=== PATIENT | female | born 1935 | race Caucasian/White ===

== ENCOUNTER → 2020-02-14 04:16 | Outpatient (REF) | payer MEDICARE, OTHER, SELFPAY ==
[2020-02-14 04:46] LABS: Microscopic, Urine URINE MICROSCOPIC (MICROSCOPIC)
[2020-02-14 04:49] LABS: Appearance,Urine CLEAR (Clear); Bilirubin,Urine Negative (Negative); Blood, Urine Negative (Negative); Color,Urine YELLOW (Yellow); Glucose,Urine (UA) Negative (Negative); Ketones,Urine Negative (Negative); Leukocyte Esterase,Urine Negative (Negative); Nitrate,Urine Negative (Negative); Protein,Urine Negative (Negative); Urobilinogen,Urine 0.2 EU/dl (0.2)
[2020-02-14 04:55] LABS: Bacteria,Urine 1+ /lpf
== END ==
LOC: LAB 04:16
PROVIDERS: Visit Provider Emergency Medicine
DX: R39.9 Unspecified symptoms and signs involving the genitourinary system (principal)
CPT/HCPCS: 81001; 87086

== ENCOUNTER → 2020-02-19 05:43 | Outpatient (CLI) | payer MEDICARE, OTHER, SELFPAY ==
[2020-02-19 06:05] LABS: Adenovirus F 40/41, stool Not Detected (NotDetected); Astrovirus Not Detected (NotDetected); Campylobacter Not Detected (NotDetected); Clostridium Difficile A/B, PCR Not Detected (NotDetected); Cryptosporidium Not Detected (NotDetected); Cyclospora Cayetanesis Not Detected (NotDetected); Entamoeba histolytica Not Detected (NotDetected); Enteroaggregative E coli Not Detected (NotDetected); Enteropathogenic E coli Not Detected (NotDetected); Enterotoxigenic E coli Not Detected (NotDetected); Giardia lamblia Not Detected (NotDetected); Norovirus Not Detected (NotDetected); Plesimonas Shigalloides, PCR Not Detected (NotDetected); Rotavirus A Not Detected (NotDetected); Salmonella, PCR Not Detected (NotDetected); Sapovirus Not Detected (NotDetected); Shiga-like toxin E coli Not Detected (NotDetected); Shigella Enterovasive E coli Not Detected (NotDetected); Vibrio Cholerae Not Detected (NotDetected); Vibrio, PCR Not Detected (NotDetected); Yersinia Entercolitica, PCR Not Detected (NotDetected)
== END ==
PROVIDERS: PCP Emergency Medicine; Visit Provider Emergency Medicine
DX: R19.7 Diarrhea, unspecified (principal)
CPT/HCPCS: 87506

== ENCOUNTER 2020-03-02 14:01 | Emergency (ER) | payer MEDICARE, OTHER, SELFPAY ==
[2020-03-02 14:02] VITALS: BP 109/67; PULSE 73; RESP 18; TEMP 36.3; O2SAT 97; BMI 26.4
--- NOTE | 2020-03-02 14:03 | HMH.EDGENADL ---
ED Disposition Clinical Impression: Nasal laceration Qualifiers: Encounter type: initial encounter Qualified Code(s): S01.21XA - Laceration without foreign body of nose, initial encounter Fall Qualifiers: Encounter type: initial encounter Qualified Code(s): W19.XXXA - Unspecified fall, initial encounter Forehead contusion Qualifiers: Encounter type: initial encounter Qualified Code(s): S00.83XA - Contusion of other part of head, initial encounter Disposition: Xfer SNF Condition on Discharge: Good Instructions: How to Prevent Falls, DI for Laceration Repair Additional Instructions: Additional instructions for FACIAL LACERATION: Clean the wound daily with soap and water. You may shower. Apply a thin film of antibiotic ointment such as neosporin or triple antibiotic after showering. Avoid submerging the wound, no swimming. See your primary care physician in 5 days for suture removal. Return if any signs of infection including increasing pain, pus drainage, swelling, redness, red streaks, or fever. Additional instructions for HEAD INJURY: See your physician as soon as possible for further evaluation. Return immediately if severe headache, vomiting, problems with vision or speech, numbness or weakness of the extremities, or severe neck pain. Referrals: Dell Oconnell MD [Primary Care Provider] - - Critical Care Critical Care Time: No Attestation: On , the high probability of a clinically significant, sudden or life threatening deterioration of the following system(s) required my full and direct attention, intervention and personal management. The time I documented below is in addition to time spent performing reported procedures but includes the following listed in this critical care notation. Medical Decision Making - Cash Inquiry Pt receiving controlled substance: No Vital Signs: 03/02/20 14:02 03/02/20 15:32 Temperature 97.4 F L Temperature Source Oral Pulse Rate [Left Radial] 73 59 L Respiratory Rate 18 Blood Pressure [Right Arm] 109/67 L 102/63 L Blood Pressure Mean [Right Arm] 81 76 Blood Pressure Source [Right Arm] Automatic Cuff Blood Pressure Position [Right Arm] Sitting Sitting 02 Sat by Pulse Oximetry 97 95 Oxygen Delivery Method Room Air Room Air Orders (Tests/Meds): ED MEDICATIONS Discontinued Medications Generic Name Dose Route Start Last Admin Trade Name Freq PRN Reason Stop Dose Admin Lidocaine HCl 10 ml 03/02/20 14:12 Lidocaine 1% 10ml Mdv SQ 03/02/20 14:13 ONCE ONE Tetanus/Reduced Diphtheria/Acell Pertussis 0.5 ml 03/02/20 14:12 Adacel Tdap 0.5ml Syringe IM 03/02/20 14:13 .ONCE ONE - CT Data CT Scan: Head, C-Spine, Other (facial) Time Received: 15:[address] Reviewed: Yes: I have viewed the radiologist's interpretation Findings Narrative: PROCEDURE: CT FACIAL BONES WO CON CLINICAL HISTORY: FALL , LACERATION ON NOSE Posttraumatic pain, contusion with hematoma/laceration with swelling above the right eyebrow COMPARISON: No exams were available for comparison TECHNIQUE: Axial images obtained with sagittal and coronal reformats. All CT scans at the facility use one or more dose reduction, viz: automated exposure control, ma/kV adjustment per patient size (including targeted exams where dose is matched to indication, i.e. head), or iterative reconstruction technique. FINDINGS: Soft tissue swelling is present in the right frontal region of the scalp. No obvious fracture or dislocation. There is opacified left mastoid sinus. There is an oval area of subcortical lucency involving the right frontal bone medially. This measures approximately 11 x 3 mm and is well-circumscribed. No sinus air-fluid levels. There is some soft tissue gas along the inferior aspect of the nose at the region of the inferior nasal spine. Suspect underlying laceration. No obvious fracture. IMPRESSION: 1. No acute fractu
--- NOTE | 2020-03-02 14:11 | CT_ITS ---
PROCEDURE: CT HEAD/BRAIN WO CON CLINICAL INDICATION: fall Headache following injury, trauma, posttraumatic pain with contusion or hematoma/abrasion, dementia, altered mental status, swelling over right eyebrow COMPARISON: No exams were available for comparison TECHNIQUE: Axial images obtained. All CT scans at the facility use one or more dose reduction, viz: automated exposure control, ma/kV adjustment per patient size (including targeted exams where dose is matched to indication, i.e. head), or iterative reconstruction technique. FINDINGS: No midline shift, mass effect, intracranial hemorrhage, hydrocephalus, or extra-axial fluid collection is evident. There is generalized atrophy with hypoattenuation of the periventricular white matter consistent with microangiopathic changes. The calvarium has an unremarkable appearance. There is opacification of the left mastoid sinus no sinus air-fluid level. IMPRESSION: 1. No acute intracranial findings. 2. Left mastoid sinus disease Dictated by: Satnam Nelson MD 03/02/2020 15:00 Electronically signed by Satnam Nelson MD in [place] 03/02/2020 15:00
--- NOTE | 2020-03-02 14:12 | CT_ITS ---
PROCEDURE: CT CERVICAL SPINE WO CON CLINICAL INDICATION: fall Posttraumatic pain, neck pain following injury, blunt trauma with injury and pain the COMPARISON: No exams were available for comparison TECHNIQUE: Axial images obtained with sagittal and coronal reformats. All CT scans at the facility use one or more dose reduction, viz: automated exposure control, ma/kV adjustment per patient size (including targeted exams where dose is matched to indication, i.e. head), or iterative reconstruction technique. Axial spiral CT scanning performed of the cervical spine beginning at the base of the skull and continuing to the upper T-spine. 3-D multiplanar reconstruction with 3-D manipulation of volumetric data set in image rendering was completed by the radiologist and/or technologist with the supervision of the radiologist on independent workstation. FINDINGS: No acute fracture apparent. There is multilevel cervical spondylosis with osteoarthritic change of the atlantoaxial joint, degenerative disc disease C2-C3 with mild disc calcification, degenerative disc disease C3-C4 with 3 mm anterolisthesis of C3 and bilateral foraminal narrowing from endplate and uncovertebral and facet hypertrophy, degenerative disc disease C4-C5 with bilateral foraminal narrowing, degenerative disc disease C5-C6, degenerative disc disease C6-C7, degenerative disc disease C7-T1 with 4 mm anterolisthesis of C7. There are fibrotic changes in the lung apex on the right. 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 No acute fracture. 2. Multilevel cervical spondylosis as detailed above Dictated by: Satnam Nelson MD 03/02/2020 15:08 Electronically signed by Satnam Nelson MD in [place] 03/02/2020 15:08
--- NOTE | 2020-03-02 14:26 | PC.NURSE ---
Pt to rad.
--- NOTE | 2020-03-02 14:38 | PC.NURSE ---
daughter called and stated that she was POA and gave us permission to treat patient
--- NOTE | 2020-03-02 14:39 | CT_ITS ---
PROCEDURE: CT FACIAL BONES WO CON CLINICAL HISTORY: FALL , LACERATION ON NOSE Posttraumatic pain, contusion with hematoma/laceration with swelling above the right eyebrow COMPARISON: No exams were available for comparison TECHNIQUE: Axial images obtained with sagittal and coronal reformats. All CT scans at the facility use one or more dose reduction, viz: automated exposure control, ma/kV adjustment per patient size (including targeted exams where dose is matched to indication, i.e. head), or iterative reconstruction technique. FINDINGS: Soft tissue swelling is present in the right frontal region of the scalp. No obvious fracture or dislocation. There is opacified left mastoid sinus. There is an oval area of subcortical lucency involving the right frontal bone medially. This measures approximately 11 x 3 mm and is well-circumscribed. No sinus air-fluid levels. There is some soft tissue gas along the inferior aspect of the nose at the region of the inferior nasal spine. Suspect underlying laceration. No obvious fracture. IMPRESSION: 1. No acute fracture. 2. Right frontal scalp contusion. 3. Soft tissue gas along the inferior nasal spine suggestive of underlying laceration without obvious fracture. 4. Benign-appearing cystic lesion of the right frontal bone Dictated by: Satnam Nelson MD 03/02/2020 15:05 Electronically signed by Satnam Nelson MD in [place] 03/02/2020 15:05
--- NOTE | 2020-03-02 14:46 | PC.NURSE ---
Pt returned from rad.
[2020-03-02 15:32] VITALS: BP 102/63; PULSE 59; O2SAT 95
--- NOTE | 2020-03-02 15:32 | PC.NURSE ---
at bedside suturing
--- NOTE | 2020-03-02 15:41 | PC.NURSE ---
Notified Charis of transfer
--- NOTE | 2020-03-02 16:14 | PC.NURSE ---
[facility]
[2020-03-02 16:21] VITALS: BP 115/74; PULSE 78; RESP 16; TEMP 36.6; O2SAT 94
== END 2020-03-02 16:22 ==
PROVIDERS: Emergency Provider Emergency Medicine; PCP Emergency Medicine
DX: S01.21XA Laceration without foreign body of nose, initial encounter (principal); W01.10XA Fall on same level from slipping, tripping and stumbling with subsequent striking against unspecified object, initial encounter; Y92.129 Unspecified place in nursing home as the place of occurrence of the external cause; F03.90 Unspecified dementia, unspecified severity, without behavioral disturbance, psychotic disturbance, mood disturbance, and anxiety; Z23 Encounter for immunization
CPT/HCPCS: 12013; 70450; 70486; 72125; 90471; 90715; 99283

== ENCOUNTER 2020-03-03 09:07 | Inpatient (IN) | payer MEDICARE, OTHER, SELFPAY ==
[2020-03-03] VITALS (17 sets, daily range): BP systolic 63–137; BP diastolic 29–85; PULSE 50–85; RESP 16–20; TEMP 36.2–36.9; O2SAT 94–100; BMI 23.8
--- NOTE | 2020-03-03 09:25 | CT_ITS ---
PROCEDURE: CT HEAD/BRAIN WO CON CLINICAL INDICATION: ams Altered mental status, altered level of consciousness, confusion, disorientation, dementia COMPARISON: CT HEAD/BRAIN WO CON from 03/02/2020 TECHNIQUE: Axial images obtained. All CT scans at the facility use one or more dose reduction, viz: automated exposure control, ma/kV adjustment per patient size (including targeted exams where dose is matched to indication, i.e. head), or iterative reconstruction technique. FINDINGS: No midline shift, mass effect, intracranial hemorrhage, hydrocephalus, or extra-axial fluid collection is evident. There is generalized atrophy with hypoattenuation of the periventricular white matter consistent with microangiopathic changes. Nodularity is noted in the pituitary region measuring 10 mm. The calvarium has an unremarkable appearance. There is opacification of the left mastoid sinus. No sinus air-fluid level. IMPRESSION: 1. No acute intracranial findings. 2. Possible pituitary nodule. Nonemergent MRI of the pituitary may confirm if clinically desired. 3. Left mastoid sinus disease Dictated by: Satnam Nelson MD 03/03/2020 10:38 Electronically signed by Satnam Nelson MD in [facility] 03/03/2020 10:38
--- NOTE | 2020-03-03 09:26 | XR_ITS ---
PROCEDURE: XR CHEST PORTABLE CLINICAL HISTORY: ams, recent fall with injury and pain COMPARISON: No exams were available for comparison FINDINGS: There is cardiomegaly without failure. The lungs are clear without infiltrates, suspicious nodules, or pleural effusions. Degenerative changes of the shoulders IMPRESSION: No acute findings. Dictated by: Satnam Nelson MD 03/03/2020 10:45 Electronically signed by Satnam Nelson MD in [facility] 03/03/2020 10:45
[2020-03-03 09:31] LABS: Basophils % 0.6 % (0.1-2.0); Eosinophils # 0.1 K/mm3 (0.0-0.4); Eosinophils % 1.4 % (0.1-12.0); Hemoglobin 11.6 g/dL (12.2-16.2); Lymphocytes # 0.7 K/mm3 (0.7-4.5); Lymphocytes % 9.4 % (10-50); Mean Corpuscular HGB Conc 32.3 g/dL (31.8-35.4); Mean Corpuscular Hemoglobin 32.3 pg (27.0-31.2); Mean Corpuscular Volume 100.2 fl (81-99); Mean Platelet Volume 9.3 fl (7.4-10.4); Monocytes # 0.5 K/mm3 (0.1-1.0); Monocytes % 6.6 % (1.7-9.3); Neutrophils # 5.7 K/mm3 (1.8-7.8); Platelet Count 226 K/mm3 (142-424); Red Cell Distribution Width 13.5 % (11.5-17.5)
[2020-03-03 09:35] LABS: Chloride 101 mmol/L (98-107); Potassium 5.5 mmoL/L (3.5-5.1); Sodium 135 mmol/L (136-145)
[2020-03-03 09:37] LABS: Alanine Aminotransferase 15 U/L (12-78); Aspartate Amino Transferase 20 U/L (14-36); Blood Urea Nitrogen 36 mg/dl (7-17); Creatinine Clearance Estimated 15 mL/min (50-200); Estimated Glomerular Filt Rate 24 ml/min (>60); GFR (African American) 29 ML/MIN (>60)
[2020-03-03 09:38] LABS: Albumin Level 3.1 g/dl (3.5-5.0); Albumin/Globulin Ratio 1.1 (1.1-1.8); Alkaline Phosphatase 176 U/L (38-126); Anion Gap 16.5 mEq/L (5-15); Bilirubin,Total 0.3 mg/dl (0.2-1.3); Carbon Dioxide 23 mmol/L (22.0-30.0); Globulin 2.7 g/dL (1.3-3.2); Glucose 91 mg/dl (74-100); Total Protein,Serum 5.8 g/dl (6.3-8.2)
--- NOTE | 2020-03-03 09:41 | ECG_ITS ---
APPROVED REPORT Exam: Resting ECG HR:55 bpm ECG Measurements Heart Rate 55 AXES MI 144 P 99 QRSd 82 QRS 75 QT 446 T 73 QTc 426 <Conclusion> Sinus bradycardia Otherwise normal ECG Electronically signed by : Julio Armando, 03/03/2020 17:00:00
[2020-03-03 09:43] LABS: Appearance,Urine SL CLOUDY (Clear); Bilirubin,Urine Negative (Negative); Blood, Urine 1+ (Negative); Color,Urine YELLOW (Yellow); Glucose,Urine (UA) Negative (Negative); Ketones,Urine Negative (Negative); Leukocyte Esterase,Urine 1+ (Negative); Microscopic, Urine URINE MICROSCOPIC (MICROSCOPIC); Nitrate,Urine Negative (Negative); PH,Urine 7.5 (5.0-8.5); Protein,Urine TRACE (Negative); Specific Gravity, Urine 1.015 (1.005-1.030); Urobilinogen,Urine 0.2 EU/dl (0.2)
--- NOTE | 2020-03-03 09:47 | PC.NURSE ---
Pt going to rad
[2020-03-03 09:49] LABS: Amorphous Sediment,Urine 1+ /lpf; WBC,Urine 50-100 #/hpf (0-3)
--- NOTE | 2020-03-03 11:12 | PC.NURSE ---
JUDITH DASILVA speaking with Dr. Oconnell
--- NOTE | 2020-03-03 11:42 | CT_ITS ---
PROCEDURE: CT ABDOMEN PELVIS WO CON CLINICAL INDICATION: NAUSEA, VOMITING COMPARISON: No exams were available for comparison TECHNIQUE: Axial images obtained with sagittal and coronal reformats. All CT scans at the facility use one or more dose reduction, viz: automated exposure control, ma/kV adjustment per patient size (including targeted exams where dose is matched to indication, i.e. head), or iterative reconstruction technique. FINDINGS: LOWER THORAX: No acute finding ABDOMEN & PELVIS: The liver has an unremarkable appearance. Subtle increased density is present in the gallbladder posteriorly may be due to stones and/or sludge. Gallbladder ultrasound may confirm. The spleen and pancreas have an unremarkable appearance. There is mild prominence of the adrenal glands nonspecific. No renal or ureteral calculi. 1 cm exophytic isodense the projects laterally of the right kidney and may be due to small cyst. No intestinal obstruction or free air. There is a mild amount of retained colonic feces with colonic diverticulosis but no evidence of diverticulitis. Suture line is present in the right lower quadrant possibly from prior appendectomy. No evidence of appendicitis. Julian catheter is present. Air is present in the urinary bladder. There are degenerative changes in the lumbar spine and hips. IMPRESSION: Possible gallstones and/or sludge Colonic diverticulosis. No evidence of diverticulitis. Dictated by: Satnam Nelson MD 03/03/2020 12:40 Electronically signed by Satnam Nelson MD in [facility] 03/03/2020 12:40
--- NOTE | 2020-03-03 11:43 | CT_ITS ---
PROCEDURE: CT CHEST WO CON CLINICAL INDICATION: HYPOTENSION Hypotension, COMPARISON: XR CHEST PORTABLE from 03/03/2020 CT ABDOMEN PELVIS WO CON from 03/03/2020 TECHNIQUE: Axial images obtained with sagittal and coronal reformats. All CT scans at the facility use one or more dose reduction, viz: automated exposure control, ma/kV adjustment per patient size (including targeted exams where dose is matched to indication, i.e. head), or iterative reconstruction technique. FINDINGS: Areas noted scattered in the venous structures of the upper chest and neck possibly due to recent venous access. There are coronary artery calcifications. There is mild cardiomegaly. There are some mild atelectatic changes in the lung bases. No lobar consolidation or collapse. No effusions or infiltrates. There is moderate-sized right shoulder joint effusion causing some mild displacement anteriorly of the right humeral head. There is scalloping of the right glenoid and a chromium consistent with chronic effusion. Subarticular cystic changes are present in the left humeral head with medium size left shoulder joint effusion. Kyphoscoliosis noted in the thoracic spine with no acute bony anomalies evident. IMPRESSION: 1. No acute cardiac or pulmonary findings. 2. Coronary artery calcification. 3. Scattered foci of air noted in the venous structures of the upper chest and neck possibly due to recent venous access. Please correlate clinically 4. Bilateral shoulder joint effusions right larger than left with scalloping of the right glenoid and a chromium Dictated by: Satnam Nelson MD 03/03/2020 12:35 Electronically signed by Satnam Nelson MD in [place] 03/03/2020 12:35
--- NOTE | 2020-03-03 11:52 | PC.NURSE ---
Pt to rad.
--- NOTE | 2020-03-03 12:12 | PC.NURSE ---
Pt returned from [facility] Dr Quezada speaking with Dr. Oconnell at this time.
--- NOTE | 2020-03-03 12:50 | HMH.EDGENADL ---
ED Disposition Clinical Impression: Acute renal failure, Dehydration, Nausea and vomiting, UTI (urinary tract infection), Status post fall Disposition: Admitted as Observation Condition on Discharge: Good Instructions: DI for Altered Mental Status Additional Instructions: Spoke to Dr. Oconnell about this patient we did keep the patient down here in the ED for couple hours to monitor and watch blood pressure. Time of transfer patient was stable blood pressure was normal. Referrals: Provider,Referral, MD [Primary Care Provider] - - Critical Care Critical Care Time: No Attestation: On 03/03/20, the high probability of a clinically significant, sudden or life threatening deterioration of the following system(s) required my full and direct attention, intervention and personal management. The time I documented below is in addition to time spent performing reported procedures but includes the following listed in this critical care notation. Medical Decision Making - Medical Records Medical records reviewed: Yes: I reviewed the patient's medical records. - Cash Inquiry Pt receiving controlled substance: No Vital Signs: 03/03/20 09:18 03/03/20 09:32 03/03/20 10:19 Temperature 97.2 F L Temperature Source Rectal Pulse Rate [Left Radial] 57 L 57 L 50 L Respiratory Rate 16 16 Blood Pressure [Right Arm] 63/29 L 87/50 L 95/49 L Blood Pressure Mean [Right Arm] 40 62 64 Blood Pressure Source [Right Arm] Automatic Cuff Blood Pressure Position [Right Arm] Supine Sitting Supine 02 Sat by Pulse Oximetry 98 100 Oxygen Delivery Method Room Air Room Air 03/03/20 10:42 03/03/20 11:19 03/03/20 11:40 Temperature Temperature Source Pulse Rate [Left Radial] 52 L 52 L 57 L Respiratory Rate Blood Pressure [Right Arm] 92/36 L 86/42 L 73/46 L Blood Pressure Mean [Right Arm] 54 56 55 Blood Pressure Source [Right Arm] Blood Pressure Position [Right Arm] Sitting Supine 02 Sat by Pulse Oximetry Oxygen Delivery Method 03/03/20 11:53 03/03/20 12:15 03/03/20 12:32 Temperature Temperature Source Pulse Rate [Left Radial] 85 72 67 Respiratory Rate 16 Blood Pressure [Right Arm] 121/85 95/63 L 93/56 L Blood Pressure Mean [Right Arm] 97 73 68 Blood Pressure Source [Right Arm] Automatic Cuff Blood Pressure Position [Right Arm] Sitting Sitting Sitting 02 Sat by Pulse Oximetry 98 Oxygen Delivery Method Room Air - Lab Data Lab results reviewed: Yes: I reviewed the patient's lab results. Lab Results 03/03/20 09:15: WBC 7.0, RBC 3.60 L, Hgb 11.6 L, Hct 36.0 L, MCV 100.2 H, MCH 32.3 H, MCHC 32.3, RDW 13.5, Plt Count 226, MPV 9.3, Neut % (Auto) 82.0 H, Lymph % (Auto) 9.4 L, Roberts % (Auto) 6.6, Eos % (Auto) 1.4, Baso % (Auto) 0.6, Neut # (Auto) 5.7, Lymph # (Auto) 0.7, Roberts # (Auto) 0.5, Eos # (Auto) 0.1, Baso # (Auto) 0.0 03/03/20 09:15: Sodium 135 L, Potassium 5.5 H, Chloride 101, Carbon Dioxide 23, Anion Gap 16.5 H, BUN 36 H, Creatinine 2.00 H, Estimated Creat Clear 15, Estimated GFR 24 L, Est GFR ( Amer) 29 L, Glucose 91, Calcium 8.0 L, Total Bilirubin 0.3, AST 20, ALT 15, Alkaline Phosphatase 176 H, Total Protein 5.8 L, Albumin 3.1 L, Globulin 2.7, Albumin/Globulin Ratio 1.1 03/03/20 09:15: Lactate 2.0 03/03/20 09:15: Urine Color Yellow, Urine Appearance Sl cloudy, Urine pH 7.5, Ur Specific Hulbert 1.015, Urine Protein Trace, Urine Glucose (UA) Negative, Urine Ketones Negative, Urine Blood 1+, Urine Nitrate Negative, Urine Bilirubin Negative, Urine Urobilinogen 0.2, Ur Leukocyte Esterase 1+ A, Urine RBC 5-10, Urine WBC 50-100, Ur Squamous Epith Cells 3-5, Ur Transition Epith Cell 3-5, Amorphous Sediment 1+, Urine Bacteria None Result diagrams: 03/03/20 09:15 03/03/20 09:15 Orders (Tests/Meds): ED MEDICATIONS Generic Name Dose Route Start Last Admin Trade Name Freq PRN Reason Stop Dose Admin Sodium Chloride 1,000 mls @ 999 mls/hr 03/03/20 09:45 03/03/20 09:15 Sod Chlor 0.9%
--- NOTE | 2020-03-03 13:30 | PC.NURSE ---
report called to floor
--- NOTE | 2020-03-03 13:53 | P.CONPHA_ITS ---
[facility] Pharmacy VTE Monitoring - Patient Demographics Admission date: 03/03/20 Report Date: 03/03/20 Time: 13:53 Allergies/Adverse Reactions: Patient Allergies aspirin Allergy (Unknown, Verified 03/03/20 13:48) Unknown allergy reaction ibuprofen Allergy (Unknown, Verified 03/03/20 13:48) Unknown allergy reaction Penicillins Allergy (Unknown, Verified 03/03/20 13:48) Unknown allergy reaction Height: 1.52 m Weight: 45.359 kg Patient Problems: Current Active Problems Acute renal failure (Acute) Dehydration (Acute) Nausea and vomiting (Acute) UTI (urinary tract infection) (Acute) Status post fall (Acute) - VTE Risk Labs: VTE Related Lab Results Hgb 11.6 g/dL (12.2-16.2) L 03/03/20 09:15 Hct 36.0 % (37.0-47.0) L 03/03/20 09:15 Plt Count 226 K/mm3 (142-424) 03/03/20 09:15 BUN 36 mg/dl (7-17) H 03/03/20 09:15 Creatinine 2.00 mg/dl (0.52-1.04) H 03/03/20 09:15 Estimated Creat Clear 15 mL/min (50-200) 03/03/20 09:15 - Prophylaxis VTE Prophylaxis Ordered?: Yes Types of VTE Prophylaxis: TEDS Knee High Location of Applied Device: Bilateral Lower Extremeties - VTE Diagnosis Confirmed Treatment or plan recommended: Continue Current Treatment
--- NOTE | 2020-03-03 17:36 | PC.NURSE ---
THIS RN ALONG WITH MELINDA LOPEZ PROVIDED PATIENT WITH CATHETER CARE AND BEDSIDE BATH. THIS RN NOTED THICK, BANGURA, WHITE, MUCUS DRAINAGE FROM VAGINAL AREA WITH A STRONG FOUL ODOR.
--- NOTE | 2020-03-03 18:15 | PC.NURSE ---
THIS RN ASSISTED MELINDA LOPEZ IN PROVIDING PATIENT WITH A SHOWER USING THE SHOWER CHAIR. PATIENT TOLERATED WELL. PATIENT'S FEET BECAME RED WHILE IN A SITTING POSITION. PATIENT WEAK WHEN STANDING TO GO FROM BED TO SHOWER CHAIR. NO OTHER CONCERNS AT THIS TIME.
--- NOTE | 2020-03-03 21:50 | PC.NURSE ---
AFTER PREPARING THE PM MEDICATIONS THIS EVENING FOR THE PT, THIS RN NOTICED THE KARDEX SAID PER KMA AT [facility] BAD REACTION TO ATIVAN . THIS RN HAD ALREADY CRUSHED THE THREE PM MEDICATIONS TOGETHER BUT HAD NOT YET ADMINISTERED TO PATIENT. AFTER CONSULTING WITH THE CHARGE NURSE, EMMA HO, THIS RN CALLED [facility] TO CLARIFY WHAT HER ALLEGED REACTION IS TO ATIVAN. THIS RN SPOKE WITH THE [place] SMITH FROM [facility] AND WAS TOLD THAT THE PATIENT HAD ONLY BEEN AT [facility] FOR ABOUT A MONTH AND CURRENTLY HAD ATIVAN ON HER JAN FOR PRN DOSING. PRIOR TO HER ARRIVAL AT [facility] [place] SMITH WAS TOLD THAT THE PT WAS TAKING ATIVAN BID AND TOLERATED IT WELL BUT AFTER THE DOSING CHANGED TO PRN THE PT STARTED HAVING INCREASED ANXIETY AND INCREASED AMS. REPORTS PT WAS TRYING TO CLIMB OOB AND VERY CONFUSED. THIS RN SPOKE WITH MD SAEED AT THIS TIME AFTER SPEAKING WITH NURSE AT [facility]. EXPLAINED TO MD WHAT THE NURSE TOLD ME ABOUT PT'S REACTION TO ATIVAN. MD GAVE NEW ORDERS TO HOLD ATIVAN THIS EVENING. HE WILL READDRESS IT IN THE AM WITH CARROLL DOMINGUEZ WHO ROUNDS ON THE PT AT [facility]. HELD ATIVAN DOSE THIS EVENING. PROPERLY DISPOSED OF THE ALREADY CRUSHED MEDICATIONS WITH ATIVAN IN THE MIX. USED ANOTHER RESPIRIDONE TABLET FROM [facility] IN PT'S ROOM AND PULLED A PRAVASTATIN TABLET FROM [employer]. WITNESSED WITH [place] CARTER. PT REMAINS STABLE, WITH MILD CONFUSION THIS EVENING. TOOK MEDS WITH NO COMPLAINTS. WILL CONTINUE TO MONITOR.
[2020-03-04] VITALS (8 sets, daily range): BP systolic 94–128; BP diastolic 54–62; PULSE 50–65; RESP 16–18; TEMP 35–36.4; O2SAT 98–99; BMI 23.6; BMI 23.8
--- NOTE | 2020-03-04 00:35 | PC.NURSE ---
PT BECAME VERY RESTLESS TRYING TO CLIMB OOB, TALKING TO THE WINDOW AND GETTING FRUSTRATED EASILY. BED ALARM CONTINUOUSLY SOUNDING. STAFF ENCOURAGED PT TO CLOSE HER EYES AND REST UNTIL MORNING, PT PERSISTED. WITH HER CONTINUOS CONFUSION THIS RN REQUESTED A ONE ON ONE STAFF TO ASSIST HER FOR PT SAFETY. TECH IN ROOM AT THIS TIME TO CONTINUOUSLY MONITOR PT.
--- NOTE | 2020-03-04 03:34 | PC.NURSE ---
A&O TO SELF ONLY. ABLE TO STATE HER NAME BUT NOT WHEN ASKED. PT REMAINED VERY CONFUSED T/O SHIFT AND TALKATIVE WHEN SLEEPING. STAFF REMAINED AT BEDSIDE, WITH ONE ON ONE WATCH. BED ALARM REMAINS ON AND FUNCTIONING. TOLERATED RA WELL WITH NO COMPLAINTS. NO SOA NOTED. BILATERAL LUNGS NOTED CLEAR T/O UPON AUSCULTATION. F/C SITE NOTED C/D/I. URINE NOTED CLEAR, BRIGHT YELLOW IN COLOR WITH NORMAL ODOR. TEDS ON BLE. VSS. REMAINS SAFE. CALL LIGHT WITHIN REACH. WILL CONTINUE TO MONITOR.
--- NOTE | 2020-03-04 04:20 | PC.NURSE ---
PLACED BEAR HUGGER GOWN ON PT FOR WARMING. THIS RN WAS UNABLE TO OBTAIN A ORAL OR AXILLARY TEMP. CHECKED RECTAL, TEMP NOTED AT 96.0. PT ASYMPTOMATIC AT THIS TIME. LYING BED, TALKING, SKIN COOL TO THE TOUCH. WILL CONTINUE TO MONITOR AND REASSESS TEMP. INCREASED ROOM TEMP ALSO AT THIS TIME.
--- NOTE | 2020-03-04 04:31 | PC.NURSE ---
APPLIED WARM BLANKETS TO PT AND INCREASED ROOM TEMP AT THIS TIME DUE TO RECTAL TEMP 96.0 F. UNABLE TO OBTAIN A ORAL OR AXILLARY TEMP AT THIS TIME. PT REMAINS ASYMPTOMATIC AT THIS TIME, RESTING IN BED, TALKING WITH STAFF. PT'S SKIN COOL TO TOUCH. WILL CONTINUE TO MONITOR AND REASSESS TEMP.
[2020-03-04 05:38] LABS: POC Glucose,Bedside 97 (70-110)
[2020-03-04 06:12] LABS: Eosinophils # 0.1 K/mm3 (0.0-0.4); Mean Platelet Volume 9.2 fl (7.4-10.4); Red Cell Distribution Width 13.6 % (11.5-17.5)
[2020-03-04 06:17] LABS: Chloride 112 mmol/L (98-107); Potassium 4.9 mmoL/L (3.5-5.1); Sodium 134 mmol/L (136-145)
[2020-03-04 06:20] LABS: Alanine Aminotransferase 9 U/L (12-78); Albumin Level 2.1 g/dl (3.5-5.0); Albumin/Globulin Ratio 0.9 (1.1-1.8); Alkaline Phosphatase 135 U/L (38-126); Anion Gap 6.9 mEq/L (5-15); Aspartate Amino Transferase 16 U/L (14-36); Basophils % 0.4 % (0.1-2.0); Bilirubin,Total 0.2 mg/dl (0.2-1.3); Blood Urea Nitrogen 25 mg/dl (7-17); Carbon Dioxide 20 mmol/L (22.0-30.0); Creatinine Clearance Estimated 21 mL/min (50-200); Eosinophils % 1.7 % (0.1-12.0); Estimated Glomerular Filt Rate 33 ml/min (>60); GFR (African American) 40 ML/MIN (>60); Globulin 2.3 g/dL (1.3-3.2); Hematocrit 30.5 % (37.0-47.0); Lymphocytes # 0.9 K/mm3 (0.7-4.5); Lymphocytes % 18.1 % (10-50); Mean Corpuscular HGB Conc 31.1 g/dL (31.8-35.4); Mean Corpuscular Hemoglobin 31.2 pg (27.0-31.2); Mean Corpuscular Volume 100.5 fl (81-99); Monocytes # 0.2 K/mm3 (0.1-1.0); Monocytes % 4.5 % (1.7-9.3); Neutrophils # 3.8 K/mm3 (1.8-7.8); Neutrophils % 75.3 % (37.0-80.0); Platelet Count 158 K/mm3 (142-424); Red Blood Count 3.03 M/mm3 (4.20-5.40); Total Protein,Serum 4.4 g/dl (6.3-8.2)
[2020-03-04 06:21] LABS: Glucose 74 mg/dl (74-100); Hemoglobin 9.5 g/dL (12.2-16.2)
--- NOTE | 2020-03-04 08:05 | HMH.PHAINT ---
MEDICATION RECONCILIATION COMPLETE. [facility] WHAT WAS ENTER[facility]; UPDATED LIST ACCORDINGLY.
--- NOTE | 2020-03-04 09:39 | HMH.HP ---
*Admission Date: 03/03/20 *Chief complaint: Nausea and Vomiting *History of present illness: We have a pleasant 84-year-old female that presents here to the ED after EMS was called to [facility] for patient that was having some nausea and vomiting and blood pressure was low. When EMS did arrive on scene blood pressure was 60/40 and patient was actively retching. Patient was afebrile and the rest of her vital signs were stable. Here in the ED patient is resting comfortably after Zofran. Blood pressure after initial exam was 88/60. Respiratory rate was 16 breaths/min. Pulse rate was 62 bpm. Rectal temperature was 97 8. Patient does have dementia. Unable to obtain history from patient. As of note patient was presented here to the emergency room yesterday after a fall she was noted to have a head laceration that was subsequently repaired. CT the head yesterday was completed and showed no acute intracranial abnormality. Per half-way patient had no other symptoms (Per Dr. Quezada). In the ED Patient responded well after fluid bolus with blood pressure. After 2 L of fluid blood pressure prior to going to CT of the abdomen and pelvis was 121/83. After patient did get back from CT roughly at 12:30 PM Eastern standard time blood pressure was retaken again manually blood pressure was 92/58. Patient did not meet the SIRS criteria. White blood cell count was normal: Respiratory rate was 16, core body temperature rectally was 97.8, heart rate was 63. The only sepsis criteria patient had was hypotension with source of infection. Source of infection was urine (Per Dr. Quezada). She was seen in ED 03/02 for witnessed fall and laceration repair to tip of nose w/ sutures. 03/[address]: IMPRESSION: 1. No acute intracranial findings. 2. Possible pituitary nodule. Nonemergent MRI of the pituitary may confirm if clinically desired. 3. Left mastoid sinus disease Dictated by: Dr. Nelson, 03/03 CXR: IMPRESSION: No acute findings. Dictated by: Dr. Nelson 03/03 Abd/Pelvic CT: IMPRESSION: Possible gallstones and/or sludge Colonic diverticulosis. No evidence of diverticulitis. Dictated by: Dr. Nelson, 03/[address]: IMPRESSION: 1. No acute cardiac or pulmonary findings. 2. Coronary artery calcification. 3. Scattered foci of air noted in the venous structures of the upper chest and neck possibly due to recent venous access. Please correlate clinically 4. Bilateral shoulder joint effusions right larger than left with scalloping of the right glenoid and a chromium Dictated by: Dr. Nelson, Awaiting Blood CX x 2 and Urine CX, started Invanz in ED. She has been w/o N/V since admission, F/C drng yellow uring, Bun/Creat GFR 36/2.0 24, now 25/1.[address] [facility] History I have reviewed the patient's past medical history: Yes Medical History: Reports:: Hypertension *Have you ever received a pneumonia vaccine?: Yes *Have you received a flu vaccine this season?: Yes Other Medical History: Reports: Hypothyroidism - *Social History Alcohol Intake: never *Occupational Status:: retired Housing: half-way Household Members: other *Travel in the last 8 weeks: None Family Hx:: Unable to obtain Review of Systems - Review of Systems Review of systems:: unable to obtain PT confused and unable to answer questions appropriately. - Integumentary/Breasts Reports wounds Comments: Sutures tip of nose Meds Home Medications Medication Instructions Recorded Confirmed Type acetaminophen 500 mg tablet 500 mg PO Q4H PRN 02/02/20 03/04/20 History albuterol sulfate 90 mcg/actuation 2 puff INHALATION Q4HP PRN 02/02/20 03/04/20 History aerosol inhaler amlodipine 2.5 mg tablet 2.5 mg PO DAILY 02/02/20 03/04/20 History budesonide-formoterol HFA 160 2 puff INHALATION BID 02/02/20 03/04/20 History mcg-4.5 mcg/actuation aerosol inhaler docusate sodium 250 mg capsule 250 mg PO BID 02/02/20 03/04/20 History donepe
--- NOTE | 2020-03-04 16:00 | PC.NURSE ---
PT HAS BEEN PLEASANTLY CONFUSED AL SHIFT. BED SAFETY ON ALL SHIFT, AND STAFF AT BEDSIDE WHEN PT ATTEMPTS TO GET OUT OF BED BY HERSELF. BENJAMIN CATH DRAINING CLEAR, YELLOW URINE. VSS. WILL CONT. TO MONITOR.
--- NOTE | 2020-03-04 19:26 | PC.NURSE ---
report given to kobe
--- NOTE | 2020-03-04 20:00 | PC.NURSE ---
pt temp was 95.2 rectal nurse was notified and placed warm blankets and adjusted pts room temp.
[2020-03-05] VITALS (14 sets, daily range): BP systolic 153–171; BP diastolic 71–91; PULSE 60–79; RESP 16–20; TEMP 34.8–36.9; O2SAT 96–98; BMI 23.4
--- NOTE | 2020-03-05 03:35 | PC.NURSE ---
ON INITIAL ASSESSMENT, PT ALERT TO SELF AND PLACE, UNABLE TO IDENTIFY CURRENT TIME. LATER ON IN SHIFT PT WAS NOTED INCREASINGLY CONFUSED AND UNAWARE OF CURRENT LOCATION. FOR EXAMPLE: PT WAS CONVINCED SHE WAS GOING TO [facility]IDENTIAL, REASSURED PT THAT SHE WAS NOT GOING TO RESIDENTIAL BUT IS IN THE HOSPITAL FOR A UTI AND SHE NEEDED TO STAY HERE IN ORDER TO GET BETTER. PT IS EASILY CALMED DOWN WITH COMMUNICATING WITH STAFF. PT IS IGIUGIG, HEARS BETTER IN LEFT EAR. PT REPORTED AT BEGINNING OF SHIFT THAT SHE HAS HAD PROBLEMS OUT OF THE RIGHT EAR FOR YEARS. SAFETY DEVICE ACTIVATED THIS SHIFT. PT DID MAKE ATTEMPT TO GET OOB W/O STAFF ASSISTANCE, DESPITE INSTRUCTIONS TO NOTIFY STAFF FOR ASSISTANCE. PERRLA. FAMILY CASEWORKER EQUAL BILAT. LUNGS CLEAR T/O AUSCULTATION. TOLERATED RA WELL. ABDOMEN NOTED NONDISTENDED, ACTIVE BOWEL SOUNDS PER AUSCULTATION, SOFT AND NONTENDER PER PALPATION. BENJAMIN CATHETER IN PLACE, PATENT AND DRAINING CLEAR, YELLOW URINE. ADEQUATE UO NOTED. NO S/S OF INFECTION NOTED AT [place]. STITCHES AND SCABBING NOTED TO NOSE. BRUISING NOTED TO RIGHT SHOULDER. PT WAS NOTED WITH HYPOTHERMIA (LOWEST TEMP NOTED 95.0 F RECTALLY.) ROOM TEMP INCREASED TO 74 DEGREES AND MULTIPLE WARM BLANKETS APPLIED, MOST RECENT RECTAL TEMP NOTED 98.1 F. PULSES +2. INDEPENDENT WITH BED MOBILITY. AT BEGINNING OF SHIFT, PT AMBULATED TO AND FROM BATHROOM WITH SBA, TOLERATED WELL. MEDICATIONS CRUSHED AND TAKEN WITH APPLE SAUCE, TOLERATED WELL. WILL CONTINUE TO MONITOR.
[2020-03-05 06:58] LABS: Anion Gap 9.7 mEq/L (5-15); Blood Urea Nitrogen 19 mg/dl (7-17); Calcium 7.6 mg/dl (8.4-10.2); Carbon Dioxide 18 mmol/L (22.0-30.0); Chloride 113 mmol/L (98-107); Creatinine Clearance Estimated 21 mL/min (50-200); Estimated Glomerular Filt Rate 33 ml/min (>60); GFR (African American) 40 ML/MIN (>60); Glucose 68 mg/dl (74-100); Potassium 4.7 mmoL/L (3.5-5.1); Sodium 136 mmol/L (136-145)
[2020-03-05 07:05] LABS: Basophils % 0.4 % (0.1-2.0); Eosinophils # 0.1 K/mm3 (0.0-0.4); Eosinophils % 0.9 % (0.1-12.0); Hematocrit 34.6 % (37.0-47.0); Hemoglobin 10.6 g/dL (12.2-16.2); Lymphocytes # 0.7 K/mm3 (0.7-4.5); Lymphocytes % 12.8 % (10-50); Mean Corpuscular HGB Conc 30.7 g/dL (31.8-35.4); Mean Corpuscular Hemoglobin 31.6 pg (27.0-31.2); Mean Corpuscular Volume 102.9 fl (81-99); Mean Platelet Volume 8.7 fl (7.4-10.4); Monocytes # 0.3 K/mm3 (0.1-1.0); Neutrophils # 4.5 K/mm3 (1.8-7.8); Neutrophils % 80.9 % (37.0-80.0); Platelet Count 189 K/mm3 (142-424); Red Blood Count 3.36 M/mm3 (4.20-5.40); Red Cell Distribution Width 13.5 % (11.5-17.5); White Blood Count 5.6 K/mm3 (4.8-10.8)
--- NOTE | 2020-03-05 08:15 | HMH.DCSUM ---
General - General Admission date:: 03/03/20 Discharge date: 03/05/20 HPI HPI: We have a pleasant 84-year-old female that presents here to the ED after EMS was called to [facility] for patient that was having some nausea and vomiting and blood pressure was low. When EMS did arrive on scene blood pressure was 60/40 and patient was actively retching. Patient was afebrile and the rest of her vital signs were stable. Here in the ED patient is resting comfortably after Zofran. Blood pressure after initial exam was 88/60. Respiratory rate was 16 breaths/min. Pulse rate was 62 bpm. Rectal temperature was 97 8. Patient does have dementia. Unable to obtain history from patient. As of note patient was presented here to the emergency room yesterday after a fall she was noted to have a head laceration that was subsequently repaired. CT the head yesterday was completed and showed no acute intracranial abnormality. Per alf patient had no other symptoms (Per Dr. Quezada). In the ED Patient responded well after fluid bolus with blood pressure. After 2 L of fluid blood pressure prior to going to CT of the abdomen and pelvis was 121/83. After patient did get back from CT roughly at 12:30 PM Eastern standard time blood pressure was retaken again manually blood pressure was 92/58. Patient did not meet the SIRS criteria. White blood cell count was normal: Respiratory rate was 16, core body temperature rectally was 97.8, heart rate was 63. The only sepsis criteria patient had was hypotension with source of infection. Source of infection was urine (Per Dr. Quezada). She was seen in ED 03/02 for witnessed fall and laceration repair to tip of nose w/ sutures. 03/[address]: IMPRESSION: 1. No acute intracranial findings. 2. Possible pituitary nodule. Nonemergent MRI of the pituitary may confirm if clinically desired. 3. Left mastoid sinus disease Dictated by: Dr. Nelson, Hospital Course Hospital Course: We have a pleasant 84-year-old female that presents here to the ED after EMS was called to [facility] for patient that was having some nausea and vomiting and blood pressure was low. When EMS did arrive on scene blood pressure was 60/40 and patient was actively retching. Patient was afebrile and the rest of her vital signs were stable. Here in the ED patient is resting comfortably after Zofran. Blood pressure after initial exam was 88/60. Respiratory rate was 16 breaths/min. Pulse rate was 62 bpm. Rectal temperature was 97 8. Patient does have dementia. Unable to obtain history from patient. As of note patient was presented here to the emergency room yesterday after a fall she was noted to have a head laceration that was subsequently repaired. CT the head yesterday was completed and showed no acute intracranial abnormality. Per alf patient had no other symptoms (Per Dr. Quezada). In the ED Patient responded well after fluid bolus with blood pressure. After 2 L of fluid blood pressure prior to going to CT of the abdomen and pelvis was 121/83. After patient did get back from CT roughly at 12:30 PM Eastern standard time blood pressure was retaken again manually blood pressure was 92/58. Patient did not meet the SIRS criteria. White blood cell count was normal: Respiratory rate was 16, core body temperature rectally was 97.8, heart rate was 63. The only sepsis criteria patient had was hypotension with source of infection. Source of infection was urine (Per Dr. Quezada). She was seen in ED 03/02 for witnessed fall and laceration repair to tip of nose w/ sutures. 03/[address]: IMPRESSION: 1. No acute intracranial findings. 2. Possible pituitary nodule. Nonemergent MRI of the pituitary may confirm if clinically desired. 3. Left mastoid sinus disease Dictated by: Dr. Nelson, 03/03 CXR: IMPRESSION: No acute findings. Dictated by: Dr. Nelson 03/03 Abd/Pelvic CT: IMPRESSION:
--- NOTE | 2020-03-05 10:28 | PC.NURSE ---
pt ambulated to bathroom with one assist. pt is now sitting in chair with safety alarm in place.
[2020-03-05 12:10] LABS: Adenovirus F 40/41, stool Not Detected (NotDetected); Astrovirus Not Detected (NotDetected); Campylobacter Not Detected (NotDetected); Clostridium Difficile A/B, PCR Not Detected (NotDetected); Cryptosporidium Not Detected (NotDetected); Cyclospora Cayetanesis Not Detected (NotDetected); Entamoeba histolytica Not Detected (NotDetected); Enteroaggregative E coli Not Detected (NotDetected); Enteropathogenic E coli Not Detected (NotDetected); Enterotoxigenic E coli Not Detected (NotDetected); Giardia lamblia Not Detected (NotDetected); Norovirus Not Detected (NotDetected); Plesimonas Shigalloides, PCR Not Detected (NotDetected); Rotavirus A Not Detected (NotDetected); Salmonella, PCR Not Detected (NotDetected); Sapovirus Not Detected (NotDetected); Shiga-like toxin E coli Not Detected (NotDetected); Shigella Enterovasive E coli Not Detected (NotDetected); Vibrio Cholerae Not Detected (NotDetected); Vibrio, PCR Not Detected (NotDetected); Yersinia Entercolitica, PCR Not Detected (NotDetected)
--- NOTE | 2020-03-05 15:16 | PC.NURSE ---
Pt is alert with confusion per baseline. RR have been even and unlabored. NAD. Pt is pleasantly confused. Did send a stool sample down r/t loose stools this am, liquid and yellow in color. BS x 4 quads. CB in reach. Bed alarm in place. VSS. Will cont to mx this shift. Pt has ambulated to RR with assist x 1, briefs are in place r/t incont episodes. Santana hose in place. Lungs cta. Continues on RA.
--- NOTE | 2020-03-05 20:04 | PC.NURSE ---
Did send stool r/t loose stools this shift to be checked for c diff and it was negative.
--- NOTE | 2020-03-06 02:52 | PC.NURSE ---
Pt awake majority of the shift, talks out loud with confusion continuing, cooperative more so than not. Diarrhea panel - negative with one soft bm at the beginning of the shift. Pt's rectal temp 94.6, fiorella hugger applied, hypothermia policy followed until rectal temp came back to normal. Nothing acute to report this shift, pt resting in bed, remains safe, monitoring continues.
[2020-03-06 04:00] VITALS: BP 143/81; PULSE 64; RESP 16; TEMP 35.9; O2SAT 98
[2020-03-06 05:00] VITALS: BMI 23.0
[2020-03-06 07:39] VITALS: BP 135/70; PULSE 62; RESP 17; TEMP 36.2; O2SAT 96
--- NOTE | 2020-03-06 08:48 | HMH.ACPN2 ---
Internal Medicine - PN: Subj *Date: 03/06/20 *Time: 08:49 Interval history: today pt sitting up in bed eating breakfast Exam Vital signs and Labs for Last 24 Hours: Temp Pulse Resp BP Pulse Ox 97.1 F L 62 17 135/70 96 03/06/20 07:39 03/06/20 07:39 03/06/20 07:39 03/06/20 07:39 03/06/20 07:39 Laboratory Results - last 24 hr 03/03/20 09:15: Urine Color Yellow, Urine Appearance Sl cloudy, Urine pH 7.5, Ur Specific [place] 1.015, Urine Protein Trace, Urine Glucose (UA) Negative, Urine Ketones Negative, Urine Blood 1+, Urine Nitrate Negative, Urine Bilirubin Negative, Urine Urobilinogen 0.2, Ur Leukocyte Esterase 1+ A, Urine RBC 5-10, Urine WBC 50-100, Ur Squamous Epith Cells 3-5, Ur Transition Epith Cell 3-5, Amorphous Sediment 1+, Urine Bacteria None 03/05/20 11:00: Stl Aeromonas (PCR) Not detected, Stl C. cayetanensis PCR Not detected, Stool Rotavirus (PCR) Not detected, Stl Adenov F 40/41 PCR Not detected, Stool Astrovirus (PCR) Not detected, Stool Campylobacter PCR Not detected, Stl C.difficile Tox PCR Not detected, Stool Cryptosporidium PCR Not detected, Stl E.coli Shiga Tox PCR Not detected, Stool E coli O157 PCR Not detected, Stl Enterotoxigenic E PCR Not detected, Stool EPEC (PCR) Not detected, Stool EAEC (PCR) Not detected, Stl E. histolytica PCR Not detected, Stool Giardia Lamblia PCR Not detected, Stool Salmonella PCR Not detected, Stool Sapovirus (PCR) Not detected, Stl P. shigelloides PCR Not detected, Stl Shigella/EIEC PCR Not detected, St Y.enterocolitica PCR Not detected, Stool Vibrio (PCR) Not detected, Stl Vibrio cholerae PCR Not detected, Stl Norovirus GI/GII PCR Not detected I & O for Last 24 hours: Intake & Output 03/03/20 03/04/20 03/05/20 03/06/20 11:59 11:59 11:59 11:59 Intake Total 1839 / 1839 1356 / 1356 1239 / 1239 Output Total 425 / 425 1550 / 1550 600 / 600 Balance 1414 / 1414 -194 / -194 639 / 639 Weight 100 lb 105 lb 4 oz 104 lb 4 oz 102 lb 8 oz Microbiology Reports for the Last 24 Hours: Microbiology 03/03/20 09:15 Urine,Catheterized Urine Culture - Final Strep agalactiae - (group b) 03/03/20 09:15 Blood Blood Culture - Preliminary NO GROWTH AFTER 48 HOURS 03/03/20 09:15 Blood Blood Culture - Preliminary NO GROWTH AFTER 48 HOURS - Constitutional no acute distress - *Routine HEENT Exam Head: Present: normocephalic Eye: Present: PERRL ENT: Present: mucous membranes moist - *Routine Neck Exam Present: supple. Absent: lymphadenopathy - *Routine Respiratory Exam Present: CTA bilaterally - *Routine Cardiovascular Exam Present: RRR, murmur - *Routine Abdominal Exam Present: soft, normoactive bowel sounds. Absent: tenderness - *Routine Extremities Exam Absent: cyanosis, clubbing, edema - *Routine Skin Exam Present: warm, ecchymosis. Absent: rash Comments: sutures present in nose no redness scattered bruising - *Routine Neurological Exam Present: alert [place] - Routine Psychiatric Exam Present: normal affect Assessment and Plan (1) Dehydration Current visit: Yes Status: Acute Category: Medical Code(s): E86.0 - Dehydration (2) Nausea and vomiting Current visit: Yes Status: Acute Category: Medical Code(s): R11.2 - Nausea with vomiting, unspecified (3) UTI (urinary tract infection) Current visit: Yes Status: Acute Category: Medical Code(s): N39.0 - Urinary tract infection, site not specified (4) Acute kidney injury Current visit: No Status: Acute Category: Medical Code(s): N17.9 - Acute kidney failure, unspecified (5) Altered mental state Current visit: No Status: Acute Category: Medical Code(s): R41.82 - Altered mental status, unspecified (6) Streptococcus agalactiae infection Current visit: Yes Status: Acute Category: Medical Code(s): A49.1 - Streptococcal infection, unspecified site -
--- NOTE | 2020-03-06 11:29 | PC.NURSE ---
THIS RN PROVIDED D/C INSTRUCTIONS TO JAMAL HO AT [facility]. NO CONCERNS OR NEEDS AT THIS TIME.
== END 2020-03-06 11:26 | DRG 690 ==
LOC: ER 12:59 → 2ND 13:48
PROVIDERS: Admitting Provider Emergency Medicine; Emergency Provider Family Medicine; Visit Provider Emergency Medicine
DX: N17.9 Acute kidney failure, unspecified (principal); N39.0 Urinary tract infection, site not specified; E03.9 Hypothyroidism, unspecified; I10 Essential (primary) hypertension; Z79.899 Other long term (current) drug therapy; Z79.51 Long term (current) use of inhaled steroids; S01.21XA Laceration without foreign body of nose, initial encounter; S00.83XA Contusion of other part of head, initial encounter; W19.XXXA Unspecified fall, initial encounter
CPT/HCPCS: 12013; 36415; 70450; 70486; 71045; 71250; 72125; 74176; 80048; 80053; 81001; 82962; 83605; 85025; 87040; 87086; 87088; 87186; 87507; 90471; 90715; 93005; 96365; 96367; 99283; 99285; J1335; J2405

== ENCOUNTER → 2020-03-14 00:36 | Outpatient (REF) | payer MEDICARE, SELFPAY ==
[2020-03-14 01:09] LABS: Adenovirus F 40/41, stool Not Detected (NotDetected); Astrovirus Not Detected (NotDetected); Campylobacter Not Detected (NotDetected); Cryptosporidium Not Detected (NotDetected); Cyclospora Cayetanesis Not Detected (NotDetected); Entamoeba histolytica Not Detected (NotDetected); Enteroaggregative E coli Not Detected (NotDetected); Enteropathogenic E coli Not Detected (NotDetected); Enterotoxigenic E coli Not Detected (NotDetected); Giardia lamblia Not Detected (NotDetected); Norovirus Not Detected (NotDetected); Plesimonas Shigalloides, PCR Not Detected (NotDetected); Rotavirus A Not Detected (NotDetected); Salmonella, PCR Not Detected (NotDetected); Sapovirus Not Detected (NotDetected); Shiga-like toxin E coli Not Detected (NotDetected); Shigella Enterovasive E coli Not Detected (NotDetected); Vibrio Cholerae Not Detected (NotDetected); Vibrio, PCR Not Detected (NotDetected); Yersinia Entercolitica, PCR Not Detected (NotDetected)
[2020-03-18 20:33] LABS: Clostridium Difficile A/B, PCR Detected (NotDetected)
== END ==
LOC: LAB.DROPOF 00:36
PROVIDERS: Visit Provider Emergency Medicine
DX: A04.72 Enterocolitis due to Clostridium difficile, not specified as recurrent (principal)
CPT/HCPCS: 87506

== ENCOUNTER 2020-03-17 04:45 | Inpatient (IN) | payer OTHER, MEDICARE, SELFPAY ==
[2020-03-17] VITALS (20 sets, daily range): BP systolic 52–84; BP diastolic 22–49; PULSE 40–83; RESP 12–19; TEMP 30.1–36.3; O2SAT 84–100; BMI 28.8
--- NOTE | 2020-03-17 04:29 | ECG_ITS ---
APPROVED REPORT Exam: Resting ECG HR:40 bpm ECG Measurements Heart Rate 40 AXES AR 196 P 66 QRSd 120 QRS 70 QT 618 T 61 QTc 503 <Conclusion> Marked sinus bradycardia Nonspecific intraventricular conduction delay Abnormal ECG Electronically signed by : Julio Armando, 03/18/2020 14:08:40
--- NOTE | 2020-03-17 04:39 | HMH.EDGENADL ---
ED Disposition Condition on Discharge: Serious - Critical Care Critical Care Time: Yes Total Critical Care Time: 40 Vital system(s) involved:: Circulatory Failure My critical care processes included: Assessment & monitoring of V/S, Initial and Re-exams, Data Review/Interpretation, Coordinating Care, Medication Orders and management, Documentation <Yuri James - Last Filed: 03/17/20 06:59> <Chari Le - Last Filed: 03/17/20 12:19> Clinical Impression: Bradycardia, Bandemia Hypothermia Qualifiers: Encounter type: initial encounter Qualified Code(s): T68.XXXA - Hypothermia, initial encounter Hypotension Qualifiers: Hypotension type: unspecified hypotension type Qualified Code(s): I95.9 - Hypotension, unspecified Disposition: Admitted As Inpatient Attestation: On 03/17/20, the high probability of a clinically significant, sudden or life threatening deterioration of the following system(s) required my full and direct attention, intervention and personal management. The time I documented below is in addition to time spent performing reported procedures but includes the following listed in this critical care notation. Medical Decision Making - Medical Records Medical records reviewed: Yes: I reviewed the patient's medical records. - Cash Inquiry Pt receiving controlled substance: No - Lab Data Lab results reviewed: Yes: I reviewed the patient's lab results. Result diagrams: 03/17/20 04:35 03/17/20 04:35 - Radiology Data #1 Image(s): Chest Image Reviewed: Yes I reviewed the patient's radiology image Preliminary Findings: Normal/NAD - Physician Consults Physician Consulted: Frank Oconnell Time: 06:13 Reason -: Admission Comment/Response: [facility] jail personnel reported recent increase in the patient's dose of Risperdal. Listed side effects include impaired temperature regulation. Agrees to admit the patient to the hospital. We discussed the patient's clinical information, including history, exam, laboratory and radiology results and ED course. Per hospital procedure, I will write temporary bridge inpatient orders on the patient. Specific orders requested by the admitting physician: One dose Levaquin. Continue IV fluids and Jonnathan hugger. No pressors at this time as it may induce cardiac instability in the setting of hypothermia, continue IV fluids as long as she appears to be perfusing well, which at this time she has. - Reevaluation(s) Time: :49 <Yuri James - Last Filed: 03/17/20 06:59> - Lab Data Result diagrams: 03/17/20 04:35 03/17/20 04:35 <Chari Le - Last Filed: 03/17/20 12:19> Vital Signs: 03/17/20 04:36 03/17/20 05:06 03/17/20 05:15 Temperature 86.1 F L Temperature Source Rectal Pulse Rate Pulse Rate [Right Brachial] 40 L 48 L 56 L Respiratory Rate 15 14 14 Blood Pressure Blood Pressure [Right Arm] 82/45 L 73/48 L 84/34 L Blood Pressure Mean [Right Arm] 57 56 50 Blood Pressure Source [Right Arm] Automatic Cuff Blood Pressure Position [Right Arm] Supine 02 Sat by Pulse Oximetry 100 98 97 Oxygen Delivery Method Room Air Room Air Room Air 03/17/20 05:32 03/17/20 05:45 03/17/20 06:40 Temperature 87.9 F L 89.4 F L Temperature Source Oral Rectal Pulse Rate Pulse Rate [Right Brachial] 44 L 44 L 53 L Respiratory Rate 15 16 19 Blood Pressure Blood Pressure [Right Arm] 73/41 L 76/44 L 81/45 L Blood Pressure Mean [Right Arm] 51 54 57 Blood Pressure Source [Right Arm] Blood Pressure Position [Right Arm] 02 Sat by Pulse Oximetry 97 99 98 Oxygen Delivery Method Room Air Room Air Room Air 03/17/20 07:25 03/17/20 07:46 03/17/20 07:58 Temperature 90 F L 90 F L Temperature Source Rectal Rectal Pulse Rate Pulse Rate [Right Brachial] 60 50 L 52 L Respiratory Rate Blood Pressure Blood Pressure [Right Arm] 78/47 L 69/45 L 64/34 L Blood Pressure Mean [Right Arm] 57 53 44 Blood Pressure Source [Right Arm] Auto
--- NOTE | 2020-03-17 04:41 | XR_ITS ---
PROCEDURE: XR CHEST PORTABLE CLINICAL HISTORY: hypothermia,bradycardia COMPARISON: CT CHEST WO CON from 03/03/2020 XR CHEST PORTABLE from 03/03/2020 FINDINGS: The lung lazcano are fairly well expanded and appear clear of infiltrate. Cardiac size is grossly normal considering the supine position for the radiograph. There monitor lines overlying the chest. There is slight lateral elevation of left hemidiaphragm which was noted previously. There is no definite pleural fluid seen on either side. IMPRESSION: No acute findings. Dictated by: Dr. Teofilo Rayo MD 03/17/2020 08:[address] Teofilo Rayo MD in [place] 03/17/2020 08:36
--- NOTE | 2020-03-17 04:47 | PC.NURSE ---
pt arrived to ed with left ac iv placed per ems. pt is alert, verbally responsive to verbal stimuli. noted patient to be covered in soft stool throughout perianal area. patient was bathed and placed in fiorella hugger due to hypothermic rectal temp. md at bedside. pt placed on desk monitor, gonzalez placed. warm ivf's infusing secondary to hypotensive state.
[2020-03-17 05:15] LABS: Microscopic, Urine URINE MICROSCOPIC (MICROSCOPIC)
[2020-03-17 05:17] LABS: Lymphocytes # 0.4 K/mm3 (0.7-4.5); Monocytes # 0.2 K/mm3 (0.1-1.0); Monocytes % 2.9 % (1.7-9.3)
[2020-03-17 05:27] LABS: Basophils % 0.3 % (0.1-2.0); Eosinophils % 0.4 % (0.1-12.0); Hematocrit 29.8 % (37.0-47.0); Hemoglobin 9.4 g/dL (12.2-16.2); Lymphocytes % 7.4 % (10-50); Mean Corpuscular HGB Conc 31.7 g/dL (31.8-35.4); Mean Corpuscular Hemoglobin 31.4 pg (27.0-31.2); Mean Corpuscular Volume 98.9 fl (81-99); Mean Platelet Volume 9.7 fl (7.4-10.4); Neutrophils # 4.9 K/mm3 (1.8-7.8); Neutrophils % 89.1 % (37.0-80.0); Platelet Count 109 K/mm3 (142-424); Red Blood Count 3.01 M/mm3 (4.20-5.40); Red Cell Distribution Width 14.6 % (11.5-17.5); White Blood Count 5.5 K/mm3 (4.8-10.8)
[2020-03-17 05:28] LABS: Alanine Aminotransferase 17 U/L (12-78); Albumin Level 2.6 g/dl (3.5-5.0); Alkaline Phosphatase 169 U/L (38-126); Anion Gap 10.8 mEq/L (5-15); Appearance,Urine CLEAR (Clear); Aspartate Amino Transferase 20 U/L (14-36); Bilirubin,Urine Negative (Negative); Blood Urea Nitrogen 31 mg/dl (7-17); Blood, Urine Negative (Negative); Carbon Dioxide 18 mmol/L (22.0-30.0); Chloride 105 mmol/L (98-107); Color,Urine YELLOW (Yellow); Creatine Kinase < 20 U/L (30-135); Creatinine Clearance Estimated 34 mL/min (50-200); Estimated Glomerular Filt Rate 33 ml/min (>60); GFR (African American) 40 ML/MIN (>60); Globulin 2.5 g/dL (1.3-3.2); Glucose 179 mg/dl (74-100); Glucose,Urine (UA) Negative (Negative); Ketones,Urine TRACE (Negative); Leukocyte Esterase,Urine TRACE (Negative); Nitrate,Urine Negative (Negative); PH,Urine 5.5 (5.0-8.5); Potassium 3.8 mmoL/L (3.5-5.1); Protein,Urine TRACE (Negative); Sodium 130 mmol/L (136-145); Specific Gravity, Urine 1.025 (1.005-1.030); Total Protein,Serum 5.1 g/dl (6.3-8.2); Urobilinogen,Urine 0.2 EU/dl (0.2)
[2020-03-17 05:29] LABS: Lactic Acid 2.4 mmol/L (0.7-2.1)
[2020-03-17 05:29] LABS: Bilirubin,Total 0.1 mg/dl (0.2-1.3)
[2020-03-17 05:30] LABS: INR 1.06 (0.9-1.1)
[2020-03-17 05:31] LABS: MANUAL DIFFERENTIAL MANUAL DIFFERENTIAL (MANUAL DIFF)
[2020-03-17 05:32] LABS: Activated Partial Thrombo Time 35.2 seconds (23.6-34.0)
[2020-03-17 05:38] LABS: Amphetamine/Metha Screen,Urine Negative ng/ml (<1000)
[2020-03-17 05:39] LABS: Amorphous Sediment,Urine 2+ /lpf; Barbiturates Screen,Urine Negative ng/ml (<200)
[2020-03-17 05:40] LABS: Benzodiazepines Screen,Urine Negative ng/ml (<200); Cannabinoid Screen,Urine Negative ng/ml (<50)
[2020-03-17 05:41] LABS: Cocaine Screen,Urine Negative ng/ml (<300)
[2020-03-17 05:42] LABS: Methadone Screen,Urine Negative ng/ml (<300); Opiate Screen,Urine Negative ng/ml (<300)
[2020-03-17 05:43] LABS: Phencyclidine Screen,Urine Negative ng/ml (<25)
[2020-03-17 05:45] LABS: Free T4 (Free Thyroxine) 1.31 ng/dl (0.78-2.19); Troponin I < 0.01 ng/ml (0.00-0.034)
--- NOTE | 2020-03-17 05:46 | PC.NURSE ---
pt with large amount of stool via incont episode. perianal skin care provided. temperature rechecked and recorded. remains on fiorella hugger. no distress obs. md aware of vs. no new orders given at this time.
[2020-03-17 05:59] LABS: Thyroid Stimulating Hormone 5.69 uIU/mL (0.465-4.68)
[2020-03-17 06:05] LABS: Hypochromasia 1+; Lymphocytes % 7 % (10-50); Macrocytosis 1+; Monocytes % 1 % (2-9); Neutrophils % 82 % (42-76); Platelet Estimate Slight Decrease; Total Cells Counted 100
--- NOTE | 2020-03-17 06:46 | PC.NURSE ---
md on phone with dr braun re: vs stabilization.
--- NOTE | 2020-03-17 07:30 | PC.NURSE ---
pt incontinent of stool, pt cleaned linens and gown changed
[2020-03-17 08:49] LABS: Troponin I < 0.01 ng/ml (0.00-0.034)
[2020-03-17 09:11] LABS: Reflex Lactic Add Lactic Reflex
[2020-03-17 10:48] LABS: Lactic Acid Follow Up (RFLX 1) 1.1 mmol/L (0.7-2.1)
[2020-03-17 11:01] LABS: Troponin I < 0.01 ng/ml (0.00-0.034)
--- NOTE | 2020-03-17 12:09 | P.CONPHA_ITS ---
[facility] Pharmacy VTE Monitoring - Patient Demographics Admission date: 03/17/20 Report Date: 03/17/20 Time: 12:09 Allergies/Adverse Reactions: Patient Allergies aspirin Allergy (Unknown, Verified 03/03/20 13:48) Unknown allergy reaction ibuprofen Allergy (Unknown, Verified 03/03/20 13:48) Unknown allergy reaction Penicillins Allergy (Unknown, Verified 03/03/20 13:48) Unknown allergy reaction Height: 1.63 m Weight: 76.204 kg Patient Problems: Current Active Problems Hypothermia (Acute) Hypotension (Acute) Bradycardia (Acute) Bandemia (Acute) - VTE Risk Labs: VTE Related Lab Results Hgb 9.4 g/dL (12.2-16.2) L 03/17/20 04:35 Hct 29.8 % (37.0-47.0) L 03/17/20 04:35 Plt Count 109 K/mm3 (142-424) L 03/17/20 04:35 PT 11.0 seconds (9.4-11.8) 03/17/20 04:52 INR 1.06 (0.9-1.1) 03/17/20 04:52 APTT 35.2 seconds (23.6-34.0) H 03/17/20 04:52 BUN 31 mg/dl (7-17) H 03/17/20 04:35 Creatinine 1.50 mg/dl (0.52-1.04) H 03/17/20 04:35 Estimated Creat Clear 34 mL/min (50-200) 03/17/20 04:35 - Prophylaxis Types of VTE Prophylaxis: TEDS Knee High (DALILA HOSE ORDERED)
--- NOTE | 2020-03-17 12:20 | HMH.HP ---
*Admission Date: 03/17/20 *Chief complaint: hypotension *History of present illness: 84 yr old female arrived in ed via ambulance from [facility] where she was found to be hypothermic and bradycardic. She is not able to provide any history, she is nonverbal- not her normal state- some hx reported from family. Currently being treated for C. difficile with oral vancomycin. Patient admitted for hypotension, bradicardia, and hypothermia. [facility] History I have reviewed the patient's past medical history: Yes Medical History: Reports:: Hypertension *Have you ever received a pneumonia vaccine?: No *Have you received a flu vaccine this season?: No Other Medical History: Reports: Hypothyroidism - *Social History Alcohol Intake: never *Occupational Status:: retired Housing: longterm Household Members: other *Travel in the last 8 weeks: None Family Hx:: Unable to obtain Review of Systems - Review of Systems Review of systems:: unable to obtain Meds Home Medications Medication Instructions Recorded Confirmed Type acetaminophen 500 mg tablet 500 mg PO Q4H PRN 02/02/20 03/17/20 History albuterol sulfate 90 mcg/actuation 2 puff INHALATION Q4HP PRN 02/02/20 03/17/20 History aerosol inhaler budesonide-formoterol HFA 160 2 puff INHALATION BID 02/02/20 03/17/20 History mcg-4.5 mcg/actuation aerosol inhaler docusate sodium 250 mg capsule 250 mg PO BID 02/02/20 03/17/20 History donepezil 5 mg tablet 5 mg PO HS 02/02/20 03/17/20 History lactulose 10 gram/15 mL oral 20 g PO DAILY PRN ml 02/02/20 03/17/20 History solution levothyroxine 25 mcg tablet 25 mcg PO DAILY 02/02/20 03/17/20 History magnesium chloride 71.5 mg 71.5 mg PO BID 02/02/20 03/17/20 History (magnesium chloride) tablet,delayed release montelukast 10 mg tablet 10 mg PO HS 02/02/20 03/17/20 History simvastatin 20 mg tablet 20 mg PO HS 02/02/20 03/17/20 History Calcium Carbonate/Vitamin D3 2 tab PO DAILY 03/03/20 03/17/20 History [Os-Rigoberto 500-Vit D3 200 Caplet] ondansetron HCL [Ondansetron HCl] 4 mg PO Q6HP PRN 03/03/20 03/17/20 History risperiDONE [Risperidone] 0.25 mg PO TID 03/03/20 03/17/20 History Ergocalciferol (Vitamin D2) 50,000 unit PO WEEKLY 03/04/20 03/17/20 History [Vitamin D2] Melatonin 5 mg PO DAILY 03/04/20 03/17/20 History Amlodipine Besylate [Norvasc 5mg 5 mg PO DAILY 03/17/20 03/17/20 History tablet] Vancomycin HCl 125 mg PO QID 03/17/20 03/17/20 History cephALEXin [Keflex 500mg Cap] 500 mg PO BID 03/17/20 03/17/20 History Allergies Allergy/AdvReac Type Severity Reaction Status Date / Time aspirin Allergy Unknown Unknown Verified 03/03/20 13:48 allergy reaction ibuprofen Allergy Unknown Unknown Verified 03/03/20 13:48 allergy reaction Penicillins Allergy Unknown Unknown Verified 03/03/20 13:48 allergy reaction Exam Vital signs and Labs for Last 24 Hours: Temp Pulse Resp BP Pulse Ox 90 F L 52 L 16 64/34 L 97 03/17/20 07:59 03/17/20 07:59 03/17/20 07:59 03/17/20 07:59 03/17/20 07:46 Laboratory Results - last 24 hr 03/17/20 04:35: Urine Color Yellow, Urine Appearance Clear, Urine pH 5.5, Ur Specific [place] 1.025, Urine Protein Trace, Urine Glucose (UA) Negative, Urine Ketones Trace, Urine Blood Negative, Urine Nitrate Negative, Urine Bilirubin Negative, Urine Urobilinogen 0.2, Ur Leukocyte Esterase Trace, Urine WBC 5-10, Ur Squamous Epith Cells 5-10, Amorphous Sediment 2+, Hyaline Casts 3-5, Coarse Granular Casts 5-10 03/17/20 04:35: WBC 5.5, RBC 3.01 L, Hgb 9.4 L, Hct 29.8 L, MCV 98.9, MCH 31.4 H, MCHC 31.7 L, RDW 14.6, Plt Count 109 L, MPV 9.7, Neut % (Auto) 89.1 H, Lymph % (Auto) 7.4 L, [place] % (Auto) 2.9, Eos % (Auto) 0.4, Baso % (Auto) 0.3, Neut # (Auto) 4.9, Lymph # (Auto) 0.4 L, [place] # (Auto) 0.2, Eos # (Auto) 0.0, Baso # (Auto) 0.0, Total Counted 100, Neutrophils % (Manual) 82 H, Band Neutrophils % 10.0 H, Lymphocytes % (Manual) 7 L, Monocytes % (Manual) 1 L,
--- NOTE | 2020-03-17 16:54 | PC.NURSE ---
Notified Td Le that pt has bare hugger in place and temp is required every hour. since pt is comfort care, does fiorella hugger and temps need to be continued? pt is supposed to have hospice consult. dc fiorella kerongger and temps per td le
--- NOTE | 2020-03-17 19:59 | PC.NURSE ---
PER VICTORINO STACK, PROCESS ARTIST, PER ANGELICA, NO BEAR HUGGER AND NO RECTAL TEMPS. PATIENT IS COMFORT CARE. THIS RN PHONED HOSPICE FOR REFERRAL. HOSPICE CONTACTED DAUGHTERYEN AND STATED THEY WILL BE HERE AT [facility] AROUND 1930 03/17/2020. HOSPICE HAS NOT SHOWN UP THUS FAR. FAMILY HAS BEEN ALLOWED TO VISIT PATIENT, FAMILY HAS BEEN EDUCATED IN REGARDS TO CONTACT PRECAUTIONS, ALL FAMILY MEMBERS HAVE REFUSED TO GOWN UP. FAMILY EDUCATED ON ONLY 6 VISITORS AT A TIME.
[2020-03-18] VITALS: BP 83/46; PULSE 77; PULSE 80; RESP 20; TEMP 36.4; O2SAT 90
--- NOTE | 2020-03-18 02:21 | PC.NURSE ---
Pt maintained her baseline assessment throughout my shift. Pt continues to have smaall urine output in the gonzalez and shows some +1 edema in her bilateral lower extremities. Pt remains mostly unresponsive. Family requested to d/c fluids and provide no care including vitas. Pt now asleep with family at bedside and call cloud in reach.
[2020-03-18 04:00] VITALS: PULSE 80
[2020-03-18 05:36] VITALS: BMI 21.4
[2020-03-18 07:12] VITALS: BMI 22.1
[2020-03-18 08:00] VITALS: BP 80/50; PULSE 80; PULSE 82; RESP 20; RESP 24; TEMP 36.6; O2SAT 91; O2SAT 92
--- NOTE | 2020-03-18 08:43 | P.PN_ITS ---
Internal Medicine - PN: Subj *Date: 03/18/20 *Time: 08:43 Interval history: family at bedside, family states they only want comfort care only pt is under hospice end of life care Exam Vital signs and Labs for Last 24 Hours: Temp Pulse Resp BP Pulse Ox 97.8 F 82 20 80/50 L 91 L 03/18/20 08:00 03/18/20 08:00 03/18/20 08:00 03/18/20 08:00 03/18/20 08:00 Laboratory Results - last 24 hr 03/17/20 08:15: Troponin I < 0.01 03/17/20 10:20: Troponin I < 0.01 03/17/20 10:20: Lactate 1.1 I & O for Last 24 hours: Intake & Output 03/15/20 03/16/20 03/17/20 03/18/20 11:59 11:59 11:59 11:59 Intake Total 0 / 0 0 / 0 Output Total 100 / 100 Balance 0 / 0 -100 / -100 Weight 168 lb 129 lb 5 oz - Constitutional no acute distress, chronically ill appearing - *Routine HEENT Exam Head: Present: normocephalic ENT: Present: mucous membranes moist - *Routine Neck Exam Present: supple. Absent: lymphadenopathy - *Routine Respiratory Exam Present: CTA bilaterally - *Routine Cardiovascular Exam Present: RRR, murmur - *Routine Abdominal Exam Present: soft, normoactive bowel sounds. Absent: tenderness - *Routine Extremities Exam Absent: cyanosis, clubbing, edema Comments: edema - *Routine Skin Exam Present: warm. Absent: rash - *Routine Neurological Exam pt is unresponsive - Routine Psychiatric Exam Present: unable to assess Assessment and Plan (1) C. difficile diarrhea Current visit: Yes Status: Acute Category: Medical Code(s): A04.72 - Enterocolitis due to Clostridium difficile, not specified as recurrent (2) Bradycardia Current visit: Yes Status: Acute Category: Medical Code(s): R00.1 - Bradycardia, unspecified (3) Hypotension Current visit: Yes Status: Acute Qualifiers: Hypotension type: unspecified hypotension type Qualified Code(s): I95.9 - Hypotension, unspecified Category: Medical Code(s): I95.9 - Hypotension, unspecified (4) Hypothermia Current visit: Yes Status: Acute Qualifiers: Encounter type: initial encounter Qualified Code(s): T68.XXXA - Hypothermia, initial encounter Category: Medical Code(s): T68.XXXA - Hypothermia, initial encounter (5) Altered mental state Current visit: No Status: Acute Qualifiers: Altered mental status type: unspecified Qualified Code(s): R41.82 - Altered mental status, unspecified Category: Medical Code(s): R41.82 - Altered mental status, unspecified (6) Dementia Current visit: No Status: Acute Qualifiers: Dementia type: unspecified type Dementia behavioral disturbance: with behavioral disturbance Qualified Code(s): F03.91 - Unspecified dementia with behavioral disturbance Category: Medical Code(s): F03.90 - Unspecified dementia without behavioral disturbance (7) History of CVA (cerebrovascular accident) Current visit: No Status: Acute Category: Medical Code(s): Z86.73 - Personal history of transient ischemic attack (TIA), and cerebral infarction w ithout residual deficits - Assessment and plan all Dx Assessment and Plan for all problems:: rounded with dr flaherty all orders per dr flaherty continue hospice care stop all iv fluids,antibiotics and monitoring of vitals per family request
--- NOTE | 2020-03-18 09:32 | SW/DCPLANNER ---
Addendum entered by Jessica Lundberg 03/18/20 09:58: I have informed Goldie with [facility] regarding inpatient Hospice status as well. Original Note: Per Kezia from [facility] this patient was admitted to inpatient Hospice at 8:05PM. Kezia will see this patient today.
--- NOTE | 2020-03-18 16:26 | PC.NURSE ---
Patient remains on comfort measures only, breathing has become more labored this shift, patient treated with morphine and ativan per md order, 2+ edema noted to ble and 1+ edema noted to bue, family at bedside, supportive care given.
--- NOTE | 2020-03-18 19:13 | PC.NURSE ---
report given to margarita
[2020-03-18 20:00] VITALS: BP 103/54; PULSE 68; RESP 18; TEMP 36.9; O2SAT 93
[2020-03-19 05:42] VITALS: BMI 22.1
--- NOTE | 2020-03-19 05:52 | PC.NURSE ---
PT LYING IN BED RESTING COMFORTABLY AT THIS TIME. FAMILY PRESENT AT BEDSIDE. RESPIRATIONS ARE UNLABORED. LUNGS DIMINISHED. UPON ASSESSMENT, PT NOTED TO HAVE SOME MOTTLING TO LUE. EDEMA PRESENT IN ALL EXTREMITIES. BENJAMIN CATHETER DRAINING TO BEDSIDE WITH 250 OUTPUT. COMFORT CARE MEASURES IN PLACE. ATIVAN AND MORPHINE ADMINISTERED TWICE THIS SHIFT. NO OTHER CONCERNS AT THIS TIME. WILL CONTINUE TO MONITOR.
--- NOTE | 2020-03-19 08:22 | PC.NURSE ---
Family refused V/S assessment this morning
--- NOTE | 2020-03-19 09:00 | PC.NURSE ---
Notified Mag Lacy APRN that patients bottom is excoriated and peeling, barrier cream to be applied to patient as needed per his recommendation
--- NOTE | 2020-03-19 09:07 | HMH.ACPN2 ---
Internal Medicine - PN: Subj *Date: 03/19/20 *Time: 09:07 Interval history: 84-year-old female patient resting quietly in bed, family at bedside. Family desired denies any needs at this time Exam Vital signs and Labs for Last 24 Hours: Temp Pulse Resp BP Pulse Ox 98.5 F 68 18 103/54 L 93 L 03/18/20 20:00 03/18/20 20:00 03/18/20 20:00 03/18/20 20:00 03/18/20 20:00 I & O for Last 24 hours: Intake & Output 03/16/20 03/17/20 03/18/20 03/19/20 23:59 23:59 23:59 23:59 Intake Total 0 / 0 0 / 0 0 / 0 Output Total 100 / 100 250 / 250 Balance 0 / 0 -100 / -100 -250 / -250 Weight 168 lb 129 lb 5 oz 129 lb 4.994 oz Microbiology Reports for the Last 24 Hours: Microbiology 03/17/20 04:52 Blood Blood Culture - Preliminary NO GROWTH AFTER 48 HOURS 03/17/20 04:52 Blood Blood Culture - Preliminary NO GROWTH AFTER 48 HOURS - Constitutional no acute distress, chronically ill appearing - *Routine HEENT Exam Head: Present: normocephalic Eye: Absent: periorbital swelling ENT: Present: mucous membranes moist - *Routine Neck Exam Present: trachea midline. Absent: JVD, tracheal deviation - *Routine Respiratory Exam Present: CTA bilaterally. Absent: accessory muscle use - *Routine Cardiovascular Exam Present: RRR, murmur - *Routine Abdominal Exam Present: soft, normoactive bowel sounds - *Routine Extremities Exam Present: edema, pulses intact Comments: BLE Edema - *Routine Skin Exam Present: intact, warm - *Routine Neurological Exam Present: altered mental status - Routine Psychiatric Exam Present: unable to assess Assessment and Plan (1) C. difficile diarrhea Current visit: Yes Status: Acute Category: Medical Code(s): A04.72 - Enterocolitis due to Clostridium difficile, not specified as recurrent (2) Bradycardia Current visit: Yes Status: Acute Category: Medical Code(s): R00.1 - Bradycardia, unspecified (3) Hypotension Current visit: Yes Status: Acute Qualifiers: Hypotension type: unspecified hypotension type Qualified Code(s): I95.9 - Hypotension, unspecified Category: Medical Code(s): I95.9 - Hypotension, unspecified (4) Hypothermia Current visit: Yes Status: Acute Qualifiers: Encounter type: initial encounter Qualified Code(s): T68.XXXA - Hypothermia, initial encounter Category: Medical Code(s): T68.XXXA - Hypothermia, initial encounter (5) Altered mental state Current visit: No Status: Acute Qualifiers: Altered mental status type: unspecified Qualified Code(s): R41.82 - Altered mental status, unspecified Category: Medical Code(s): R41.82 - Altered mental status, unspecified (6) Dementia Current visit: No Status: Acute Qualifiers: Dementia type: unspecified type Dementia behavioral disturbance: with behavioral disturbance Qualified Code(s): F03.91 - Unspecified dementia with behavioral disturbance Category: Medical Code(s): F03.90 - Unspecified dementia without behavioral disturbance (7) History of CVA (cerebrovascular accident) Current visit: No Status: Acute Category: Medical Code(s): Z86.73 - Personal history of transient ischemic attack (TIA), and cerebral infarction without residual deficits - Assessment and plan all Dx Assessment and Plan for all problems:: Rounded with Dr. Oconnell, all orders per Dr. Oconnell 1. We will continue DNR status
--- NOTE | 2020-03-19 17:31 | PC.NURSE ---
Pt is currently resting in bed comfortably with family at bedside. Breath sounds are diminished with inspiratory/expiratory wheezing noted. 2+ pitting edema noted to all extremities. F/C patent and draining clear, yellow urine at bedside. Pt has been medicated with Ativan and Morphine per Jan this shift with favorable results. Turning/repositioning and oral care done per family request. [address] IV [address] to the LT and RT AC. Will continue to monitor.
[2020-03-19 20:00] VITALS: BP 94/43; PULSE 64; RESP 12; TEMP 34.2; O2SAT 91
[2020-03-20 05:00] VITALS: BMI 22.1
[2020-03-20 08:00] VITALS: BP 121/58; PULSE 71; RESP 14; TEMP 34; O2SAT 91
--- NOTE | 2020-03-20 08:19 | PC.NURSE ---
Nurse aware of low temp.
--- NOTE | 2020-03-20 08:49 | HMH.ACPN2 ---
Internal Medicine - PN: Subj *Date: 03/20/20 *Time: 08:49 Interval history: pt aroused to name being called Exam Vital signs and Labs for Last 24 Hours: Temp Pulse Resp BP Pulse Ox 93.2 F L 71 14 121/58 L 91 L 03/20/20 08:00 03/20/20 08:00 03/20/20 08:00 03/20/20 08:00 03/20/20 08:00 I & O for Last 24 hours: Intake & Output 03/17/20 03/18/20 03/19/20 03/20/20 11:59 11:59 11:59 11:59 Intake Total 0 / 0 0 / 0 0 / 0 Output Total 100 / 100 250 / 250 50 / 50 Balance 0 / 0 -100 / -100 -250 / -250 -40 / -40 Weight 168 lb 129 lb 5 oz 129 lb 4.994 oz 129 lb 4.994 oz Microbiology Reports for the Last 24 Hours: Microbiology 03/17/20 04:52 Blood Blood Culture - Preliminary NO GROWTH AFTER 48 HOURS 03/17/20 04:52 Blood Blood Culture - Preliminary NO GROWTH AFTER 48 HOURS - Constitutional thin, chronically ill appearing - *Routine HEENT Exam Head: Present: normocephalic Eye: Present: PERRL ENT: Present: mucous membranes moist - *Routine Neck Exam Present: supple. Absent: lymphadenopathy - *Routine Respiratory Exam Present: CTA bilaterally - *Routine Cardiovascular Exam Present: RRR - *Routine Abdominal Exam Present: soft, normoactive bowel sounds. Absent: tenderness - *Routine Extremities Exam Present: normal capillary refill. Absent: cyanosis, clubbing, edema - *Routine Skin Exam Present: warm. Absent: rash - *Routine Neurological Exam orientedx1 aroused with name called - Routine Psychiatric Exam Present: unable to assess Assessment and Plan (1) C. difficile diarrhea Current visit: Yes Status: Acute Category: Medical Code(s): A04.72 - Enterocolitis due to Clostridium difficile, not specified as recurrent (2) Bradycardia Current visit: Yes Status: Acute Category: Medical Code(s): R00.1 - Bradycardia, unspecified (3) Hypotension Current visit: Yes Status: Acute Qualifiers: Hypotension type: unspecified hypotension type Qualified Code(s): I95.9 - Hypotension, unspecified Category: Medical Code(s): I95.9 - Hypotension, unspecified (4) Hypothermia Current visit: Yes Status: Acute Qualifiers: Encounter type: initial encounter Qualified Code(s): T68.XXXA - Hypothermia, initial encounter Category: Medical Code(s): T68.XXXA - Hypothermia, initial encounter (5) Altered mental state Current visit: No Status: Acute Qualifiers: Altered mental status type: unspecified Qualified Code(s): R41.82 - Altered mental status, unspecified Category: Medical Code(s): R41.82 - Altered mental status, unspecified (6) Dementia Current visit: No Status: Acute Qualifiers: Dementia type: unspecified type Dementia behavioral disturbance: with behavioral disturbance Qualified Code(s): F03.91 - Unspecified dementia with behavioral disturbance Category: Medical Code(s): F03.90 - Unspecified dementia without behavioral disturbance (7) History of CVA (cerebrovascular accident) Current visit: No Status: Acute Category: Medical Code(s): Z86.73 - Personal history of transient ischemic attack (TIA), and cerebral infarction without residual deficits (8) Hospice care patient Current visit: Yes Status: Acute Category: Medical Code(s): Z51.5 - Encounter for palliative care - Assessment and plan all Dx Assessment and Plan for all problems:: rounded with dr flaherty all orders per dr flaherty
--- NOTE | 2020-03-20 09:31 | PC.NURSE ---
daughter states she would like meds and care to be given upon family request.
--- NOTE | 2020-03-20 18:55 | PC.NURSE ---
Pt has rested peacefully this shift. Pt has been medicated with Morphine, Robinul, and Ativan per JAN. 20 G peripheral IV located in the LT and RT AC patent with no s/s of infiltration. Vital signs, turning/repositioning, and oral care performed on family request. Family at bedside. Call light within reach. Will continue to monitor.
--- NOTE | 2020-03-20 19:12 | PC.NURSE ---
report given to laura
--- NOTE | 2020-03-20 19:39 | PC.NURSE ---
while in my care today pt has rested comfortably. prn medication utilized. q2hr turn, oral care, and vital signs given per family.
[2020-03-20 21:25] VITALS: RESP 11
[2020-03-20 21:35] VITALS: PULSE 70; RESP 11
[2020-03-21] VITALS (7 sets, daily range): BP systolic 78; BP diastolic 40; PULSE 57; RESP 12–16; TEMP 33.2–33.9; O2SAT 93
--- NOTE | 2020-03-21 03:18 | PC.NURSE ---
PT NOTED UNRESPONSIVE T/O SHIFT. REMAINS COMFORT CARE MEASURES. FAMILY AT BEDSIDE T/O NIGHT. BILATERAL LUNGS NOTED T/O WITH EXPIRATORY RHONCHI UPON AUSCULTATION. NO AUDIBLE SECRETIONS NOTED THUS FAR THIS SHIFT. ADMINISTERED MORPHINE PER JAN T/O SHIFT PER FAMILY REQUEST FOR PT?S MOANING AND RESTLESS PERIODS. ATIVAN ALSO ADMINISTERED PER JAN FOR AGITATION AND RESTLESSNESS. PT TOLERATED ALL MEDS WELL WITH S/S OF ADVERSE REACTIONS. REMAINS IN CONTACT ENTERIC PRECAUTIONS FOR HX OF CDIFF. FAMILY REFUSING FOR V/S TO BE OBTAINED THIS SHIFT. UPON INITIAL ASSESSMENT, THIS RN MANUALLY TOOK PULSE AND RR TO GET A BASELINE. FAMILY OKAY WITH THIS AT THIS TIME.FAMILY IS OKAY WITH PT BEING TURNED Q2H DUE TO EXCORIATION NOTED TO GROIN AND BUTTOCKS REGION. REMOVED BRIEF, REMAINS OPEN TO AIR. APPLIED BARRIER CREAM TO EFFECTED AREAS. PLACED POLYNEM AND TEGADERM ON COCCYX REGION DUE TO OPEN AREA, NOTED STAGE 2 ULCERATION WITH MINIMAL BLEEDING. REMAINS SAFE. WILL CONTINUE TO MONITOR.
--- NOTE | 2020-03-21 08:52 | HMH.ACPN2 ---
Internal Medicine - PN: Subj *Date: 03/21/20 *Time: 08:52 Interval history: pt with resp - no pain- family at bedside Exam Vital signs and Labs for Last 24 Hours: Temp Pulse Resp BP Pulse Ox 93.0 F L 57 L 13 121/58 L 91 L 03/21/20 05:39 03/21/20 06:18 03/21/20 06:18 03/20/20 08:00 03/20/20 08:00 I & O for Last 24 hours: Intake & Output 03/18/20 03/19/20 03/20/20 03/21/20 11:59 11:59 11:59 11:59 Intake Total 0 / 0 0 / 0 Output Total 100 / 100 250 / 250 50 / 50 Balance -100 / -100 -250 / -250 -40 / -40 Weight 129 lb 5 oz 129 lb 4.994 oz 129 lb 4.994 oz - Constitutional no acute distress, obtunded - *Routine HEENT Exam Head: Present: normocephalic Eye: Present: EOMI, PERRL ENT: Present: mucous membranes dry - *Routine Neck Exam Absent: JVD - *Routine Respiratory Exam Present: decreased breath sounds - *Routine Cardiovascular Exam Present: RRR - *Routine Abdominal Exam Present: soft - *Routine Extremities Exam Absent: palpable cord - *Routine Skin Exam Present: intact - *Routine Neurological Exam Present: altered mental status - Routine Psychiatric Exam Present: unable to assess Assessment and Plan (1) C. difficile diarrhea Current visit: Yes Status: Acute Category: Medical Code(s): A04.72 - Enterocolitis due to Clostridium difficile, not specified as recurrent (2) Bradycardia Current visit: Yes Status: Acute Category: Medical Code(s): R00.1 - Bradycardia, unspecified (3) Hypotension Current visit: Yes Status: Acute Qualifiers: Hypotension type: unspecified hypotension type Qualified Code(s): I95.9 - Hypotension, unspecified Category: Medical Code(s): I95.9 - Hypotension, unspecified (4) Hypothermia Current visit: Yes Status: Acute Qualifiers: Encounter type: initial encounter Qualified Code(s): T68.XXXA - Hypothermia, initial encounter Category: Medical Code(s): T68.XXXA - Hypothermia, initial encounter (5) Altered mental state Current visit: No Status: Acute Qualifiers: Altered mental status type: unspecified Qualified Code(s): R41.82 - Altered mental status, unspecified Category: Medical Code(s): R41.82 - Altered mental status, unspecified (6) Dementia Current visit: No Status: Acute Qualifiers: Dementia type: unspecified type Dementia behavioral disturbance: with behavioral disturbance Qualified Code(s): F03.91 - Unspecified dementia with behavioral disturbance Category: Medical Code(s): F03.90 - Unspecified dementia without behavioral disturbance (7) History of CVA (cerebrovascular accident) Current visit: No Status: Acute Category: Medical Code(s): Z86.73 - Personal history of transient ischemic attack (TIA), and cerebral infarction without residual deficits (8) Hospice care patient Current visit: Yes Status: Acute Category: Medical Code(s): Z51.5 - Encounter for palliative care
--- NOTE | 2020-03-21 14:44 | PC.NURSE ---
Pt continues to remain unresponsive, no reactions noted with stimulation. Respiratory effort continues to be labored and retractive. RR remains around 10-12, but will occasionally rise to 20. Several family members remain at bedside. Pt remains cool to touch with rectal temp this am 91.7.
--- NOTE | 2020-03-22 04:24 | PC.NURSE ---
Pt unresponsive throughout shift. Pt has been resting comfortably with periods of restlessness. Ativan, morphine, and robinul administered throughout shift to keep patient comfortable. Family at bedside. Heartrate regular. Pt has tolerated room air well throughout shift. Respirations have been deep and labored. Has had periods of apnea. Lung sounds clear. +2 pitting edema noted throughout. Excoriation noted to genital area and buttock region. Pt has been turned per family's request and pt has received oral care q 2 hours per family consent. Bowel sounds heard in all 4 quadrants. No BM noted. Pt has been kept in contact enteric precautions. Julian cath in place with minimal urine output noted in tubing. No kinks noted. Inadequate amount of urine output this shift. Comfort measures in place. Pt resting comfortably in bed. No concerns at this time. Will continue to monitor.
[2020-03-22 05:00] VITALS: BMI 22.1
[2020-03-22 08:00] VITALS: BP 82/48; PULSE 68; RESP 12; TEMP 34.2; O2SAT 90
--- NOTE | 2020-03-22 08:26 | HMH.ACPN2 ---
Internal Medicine - PN: Subj *Date: 03/22/20 *Time: 08:26 Interval history: 84 year-old female patient resting in the bed, unresponsive to verbal stimuli appears comfortable. Exam Vital signs and Labs for Last 24 Hours: Temp Pulse Resp BP Pulse Ox 92.5 F L 57 L 12 78/40 L 93 L 03/21/20 19:48 03/21/20 19:48 03/21/20 20:15 03/21/20 19:48 03/21/20 20:15 I & O for Last 24 hours: Intake & Output 03/19/20 03/20/20 03/21/20 03/22/20 23:59 23:59 23:59 23:59 Intake Total 0 / 10 Output Total 300 / 300 Balance -300 / -290 Weight 129 lb 4.994 oz 129 lb 4.994 oz 129 lb 4.994 oz Microbiology Reports for the Last 24 Hours: Microbiology 03/17/20 04:52 Blood Blood Culture - Final NO GROWTH AFTER 5 DAYS 03/17/20 04:52 Blood Blood Culture - Final NO GROWTH AFTER 5 DAYS - Constitutional no acute distress, severe distress - *Routine HEENT Exam Head: Present: normocephalic ENT: Present: mucous membranes dry - *Routine Neck Exam Present: trachea midline. Absent: JVD, tracheal deviation - *Routine Respiratory Exam Present: CTA bilaterally. Absent: accessory muscle use - *Routine Cardiovascular Exam Present: RRR - *Routine Abdominal Exam Present: soft, normoactive bowel sounds. Absent: firm - *Routine Extremities Exam Present: edema, pulses intact - *Routine Neurological Exam Present: altered mental status - Routine Psychiatric Exam Present: unable to assess Assessment and Plan (1) C. difficile diarrhea Current visit: Yes Status: Acute Category: Medical Code(s): A04.72 - Enterocolitis due to Clostridium difficile, not specified as recurrent (2) Bradycardia Current visit: Yes Status: Acute Category: Medical Code(s): R00.1 - Bradycardia, unspecified (3) Hypotension Current visit: Yes Status: Acute Qualifiers: Hypotension type: unspecified hypotension type Qualified Code(s): I95.9 - Hypotension, unspecified Category: Medical Code(s): I95.9 - Hypotension, unspecified (4) Hypothermia Current visit: Yes Status: Acute Qualifiers: Encounter type: initial encounter Qualified Code(s): T68.XXXA - Hypothermia, initial encounter Category: Medical Code(s): T68.XXXA - Hypothermia, initial encounter (5) Altered mental state Current visit: No Status: Acute Qualifiers: Altered mental status type: unspecified Qualified Code(s): R41.82 - Altered mental status, unspecified Category: Medical Code(s): R41.82 - Altered mental status, unspecified (6) Dementia Current visit: No Status: Acute Qualifiers: Dementia type: unspecified type Dementia behavioral disturbance: with behavioral disturbance Qualified Code(s): F03.91 - Unspecified dementia with behavioral disturbance Category: Medical Code(s): F03.90 - Unspecified dementia without behavioral disturbance (7) History of CVA (cerebrovascular accident) Current visit: No Status: Acute Category: Medical Code(s): Z86.73 - Personal history of transient ischemic attack (TIA), and cerebral infarction without residual deficits (8) Hospice care patient Current visit: Yes Status: Acute Category: Medical Code(s): Z51.5 - Encounter for palliative care - Assessment and plan all Dx Assessment and Plan for all problems:: Rounded with Dr. Oconnell, all orders per Dr. Oconnell 1. Continue DNR and comfort care
[2020-03-22 15:26] VITALS: BP 87/45; PULSE 59; RESP 12; O2SAT 91
--- NOTE | 2020-03-22 18:22 | PC.NURSE ---
PATIENT CONTINUES TO BE COMFORT CARE. FAMILY REMAINS AT BEDSIDE. BENJAMIN CATH PATENT AND DRAINING TO GRAVITY WITH MINIMAL OUTPUT THIS SHIFT. BILATERAL UPPER EXTREMITIES 2+ PITTING EDEMA. PATIENT HAS BEEN UNRESPONSIVE THIS SHIFT. MEDICATED FOR COMFORT PER MAR. FAMILY VOICED NO NEEDS AT THIS TIME. CALL LIGHT WITHIN REACH WILL CONTINUE TO MONITOR.
--- NOTE | 2020-03-22 19:08 | PC.NURSE ---
report given to jose
[2020-03-22 19:35] VITALS: BP 68/41; PULSE 67; RESP 10; O2SAT 85
--- NOTE | 2020-03-23 02:59 | PC.NURSE ---
daughter has been at bedside throughout shift. patients breathing has been deep with a rate from 8 to 18. has rare episodes of apnea lasting a few seconds. patient will spontaneously adjust legs and shoulders. will grimace to deep pain . will continue to monitor.
[2020-03-23 05:00] VITALS: BMI 19.0
[2020-03-23 08:00] VITALS: RESP 8
--- NOTE | 2020-03-23 08:45 | HMH.ACPN2 ---
Internal Medicine - PN: Subj *Date: 03/23/20 *Time: 08:45 Interval history: appears comfortable this am Exam Vital signs and Labs for Last 24 Hours: Temp Pulse Resp BP Pulse Ox 93.6 F L 67 10 L 68/41 L 85 L 03/22/20 08:00 03/22/20 19:35 03/22/20 19:35 03/22/20 19:35 03/22/20 19:35 I & O for Last 24 hours: Intake & Output 03/20/20 03/21/20 03/22/20 03/23/20 11:59 11:59 11:59 11:59 Intake Total 0 / 0 50 / 50 Output Total 50 / 50 50 / 50 Balance -40 / -40 10 0 / 0 0 / 0 Weight 129 lb 4.994 oz 129 lb 4.994 oz 111 lb 9 oz Microbiology Reports for the Last 24 Hours: Microbiology 03/17/20 04:52 Blood Blood Culture - Final NO GROWTH AFTER 5 DAYS 03/17/20 04:52 Blood Blood Culture - Final NO GROWTH AFTER 5 DAYS - Constitutional obtunded - *Routine HEENT Exam Head: Present: normocephalic Eye: Present: EOMI, PERRL ENT: Present: mucous membranes dry - *Routine Neck Exam Absent: JVD - *Routine Respiratory Exam Present: decreased breath sounds - *Routine Cardiovascular Exam Present: RRR - *Routine Abdominal Exam Present: soft - *Routine Extremities Exam Absent: calf tenderness - *Routine Skin Exam Present: intact - *Routine Neurological Exam Present: alert, CN II-XII intact - Routine Psychiatric Exam Present: unable to assess Assessment and Plan (1) C. difficile diarrhea Current visit: Yes Status: Acute Category: Medical Code(s): A04.72 - Enterocolitis due to Clostridium difficile, not specified as recurrent (2) Bradycardia Current visit: Yes Status: Acute Category: Medical Code(s): R00.1 - Bradycardia, unspecified (3) Hypotension Current visit: Yes Status: Acute Qualifiers: Hypotension type: unspecified hypotension type Qualified Code(s): I95.9 - Hypotension, unspecified Category: Medical Code(s): I95.9 - Hypotension, unspecified (4) Hypothermia Current visit: Yes Status: Acute Qualifiers: Encounter type: initial encounter Qualified Code(s): T68.XXXA - Hypothermia, initial encounter Category: Medical Code(s): T68.XXXA - Hypothermia, initial encounter (5) Altered mental state Current visit: No Status: Acute Qualifiers: Altered mental status type: unspecified Qualified Code(s): R41.82 - Altered mental status, unspecified Category: Medical Code(s): R41.82 - Altered mental status, unspecified (6) Dementia Current visit: No Status: Acute Qualifiers: Dementia type: unspecified type Dementia behavioral disturbance: with behavioral disturbance Qualified Code(s): F03.91 - Unspecified dementia with behavioral disturbance Category: Medical Code(s): F03.90 - Unspecified dementia without behavioral disturbance (7) History of CVA (cerebrovascular accident) Current visit: No Status: Acute Category: Medical Code(s): Z86.73 - Personal history of transient ischemic attack (TIA), and cerebral infarction without residual deficits (8) Hospice care patient Current visit: Yes Status: Acute Category: Medical Code(s): Z51.5 - Encounter for palliative care
--- NOTE | 2020-03-23 14:31 | PC.NURSE ---
Patient remains on comfort measures only, family remains at bedside, pt is unresponsive, has been in bed with eyes closed this shift. Remains on RA, vital signs have not been obtained this shift due to family request. Has not required medications for pain, appears comfortable, 2+ edema to BUE noted, IV line patent, FC draining at bedside, minimal urine output noted this shift, will continue to monitor.
--- NOTE | 2020-03-23 20:45 | PC.NURSE ---
2000 vitals not done per family request, will do them before bath
[2020-03-23 21:30] VITALS: BP 95/54; PULSE 54; RESP 16; TEMP 33.9; O2SAT 88
--- NOTE | 2020-03-24 04:13 | PC.NURSE ---
patient has rested with daughter at bedside, breathing pattern varies from deep to shallow with short periods of apnea. respiratory rate anywhere from 10 to 22. patient continues to moves extremities spontaneously on rare occasions.
[2020-03-24 05:00] VITALS: BMI 19.7
--- NOTE | 2020-03-24 08:45 | P.PN_ITS ---
Internal Medicine - PN: Subj *Date: 03/24/20 *Time: 08:45 Interval history: in no distress with occ resp - family at bedside Exam Vital signs and Labs for Last 24 Hours: Temp Pulse Resp BP Pulse Ox 93.1 F L 54 L 16 95/54 L 88 L 03/23/20 21:30 03/23/20 21:30 03/23/20 21:30 03/23/20 21:30 03/23/20 21:30 I & O for Last 24 hours: Intake & Output 03/21/20 03/22/20 03/23/20 03/24/20 11:59 11:59 11:59 11:59 Intake Total 10 / 10 0 / 0 50 / 50 0 / 0 Output Total 50 / 50 Balance 10 / 10 0 / 0 0 / 0 0 / 0 Weight 129 lb 4.994 oz 111 lb 9 oz 115 lb 6 oz - Constitutional no acute distress, obtunded - *Routine HEENT Exam Head: Present: normocephalic Eye: Present: EOMI, PERRL ENT: Present: mucous membranes dry - *Routine Neck Exam Absent: JVD - *Routine Respiratory Exam Present: decreased breath sounds - *Routine Cardiovascular Exam Present: RRR - *Routine Abdominal Exam Present: soft - *Routine Extremities Exam Absent: cyanosis - *Routine Skin Exam Present: intact - *Routine Neurological Exam Present: altered mental status - Routine Psychiatric Exam Present: unable to assess Assessment and Plan (1) C. difficile diarrhea Current visit: Yes Status: Acute Category: Medical Code(s): A04.72 - Enterocolitis due to Clostridium difficile, not specified as recurrent (2) Bradycardia Current visit: Yes Status: Acute Category: Medical Code(s): R00.1 - Bradycardia, unspecified (3) Hypotension Current visit: Yes Status: Acute Qualifiers: Hypotension type: unspecified hypotension type Qualified Code(s): I95.9 - Hypotension, unspecified Category: Medical Code(s): I95.9 - Hypotension, unspecified (4) Hypothermia Current visit: Yes Status: Acute Qualifiers: Encounter type: initial encounter Qualified Code(s): T68.XXXA - Hypothermia, initial encounter Category: Medical Code(s): T68.XXXA - Hypothermia, initial encounter (5) Altered mental state Current visit: No Status: Acute Qualifiers: Altered mental status type: unspecified Qualified Code(s): R41.82 - Altered mental status, unspecified Category: Medical Code(s): R41.82 - Altered mental status, unspecified (6) Dementia Current visit: No Status: Acute Qualifiers: Dementia type: unspecified type Dementia behavioral disturbance: with behavioral disturbance Qualified Code(s): F03.91 - Unspecified dementia with behavioral disturbance Category: Medical Code(s): F03.90 - Unspecified dementia without behavioral disturbance (7) History of CVA (cerebrovascular accident) Current visit: No Status: Acute Category: Medical Code(s): Z86.73 - Perso nal history of transient ischemic attack (TIA), and cerebral infarction without residual deficits (8) Hospice care patient Current visit: Yes Status: Acute Category: Medical Code(s): Z51.5 - Encounter for palliative care
--- NOTE | 2020-03-24 15:23 | PC.NURSE ---
PT IS RESTING IN BED WITH FAMILY IN THE ROOM. FAMILY THINKS PT APPEARS TO BE COMFORTABLE. PT'S DAUGHTER STATES SHE DOES NOT WANT PT'S VITAL SIGNS TAKEN. TURNED/REPOSITIONED/ORAL CARE PROVIDED NEEDED. PT HAS ONLY NEEDED MORPHINE FOR AIR HUNGER ONCE THIS SHIFT. SWELLING NOTED TO BLE/BUE. WILL CONTINUE TO MONITOR.
[2020-03-24 17:26] VITALS: RESP 10
--- NOTE | 2020-03-24 17:27 | PC.NURSE ---
FAMILY REQUESTED FOR PT TO BE TURNED AND REPOSITIONED. PT WAS MEDICATED WITH MORPHINE BEFORE REPOSITIONING.
[2020-03-24 20:00] VITALS: BP 113/74; PULSE 58; RESP 14; RESP 16; O2SAT 92
[2020-03-25 04:38] VITALS: BMI 19.8
--- NOTE | 2020-03-25 05:31 | PC.NURSE ---
Pt has rested comfortably throughout shift. She has been turned at request of family. Pt did have a partial bath and excoriations to buttocks and coccyx noted. Strong yeasty smell present. Area cleaned and polymem drsg placed at request of pt's daughter. Julian to bedside drain w/ an adequate amount of dark, cloudy urine present. BLE elevated on pillow. Will continue to monitor.
[2020-03-25 08:00] VITALS: BP 91/42; PULSE 58; RESP 14; TEMP 34.6; O2SAT 92
--- NOTE | 2020-03-25 08:58 | HMH.ACPN2 ---
Internal Medicine - PN: Subj *Date: 03/25/20 *Time: 08:58 Interval history: Daughter at bedside. Patient resting comfortably. Patient does not respond when name called. Exam Vital signs and Labs for Last 24 Hours: Temp Pulse Resp BP Pulse Ox 94.2 F L 58 L 14 91/42 L 92 L 03/25/20 08:00 03/25/20 08:00 03/25/20 08:00 03/25/20 08:00 03/25/20 08:00 I & O for Last 24 hours: Intake & Output 03/22/20 03/23/20 03/24/20 03/25/20 11:59 11:59 11:59 11:59 Intake Total 0 / 0 50 / 50 0 / 0 0 / 0 Output Total 50 / 50 350 / 350 Balance 0 / 0 0 / 0 0 / 0 -350 / -350 Weight 129 lb 4.994 oz 111 lb 9 oz 115 lb 6 oz 116 lb 3 oz - Constitutional no acute distress, chronically ill appearing, obtunded - *Routine HEENT Exam Head: Present: normocephalic ENT: Present: mucous membranes moist - *Routine Neck Exam Present: supple. Absent: lymphadenopathy - *Routine Respiratory Exam Present: CTA bilaterally - *Routine Cardiovascular Exam Present: bradycardia - *Routine Abdominal Exam Present: soft, normoactive bowel sounds. Absent: tenderness - *Routine Extremities Exam Present: normal capillary refill. Absent: cyanosis, clubbing, edema - *Routine Skin Exam Present: warm. Absent: rash - *Routine Neurological Exam Patient is nonresponsive - Routine Psychiatric Exam Present: unable to assess Assessment and Plan (1) C. difficile diarrhea Current visit: Yes Status: Acute Category: Medical Code(s): A04.72 - Enterocolitis due to Clostridium difficile, not specified as recurrent (2) Bradycardia Current visit: Yes Status: Acute Category: Medical Code(s): R00.1 - Bradycardia, unspecified (3) Hypotension Current visit: Yes Status: Acute Qualifiers: Hypotension type: unspecified hypotension type Qualified Code(s): I95.9 - Hypotension, unspecified Category: Medical Code(s): I95.9 - Hypotension, unspecified (4) Hypothermia Current visit: Yes Status: Acute Qualifiers: Encounter type: initial encounter Qualified Code(s): T68.XXXA - Hypothermia, initial encounter Category: Medical Code(s): T68.XXXA - Hypothermia, initial encounter (5) Altered mental state Current visit: No Status: Acute Qualifiers: Altered mental status type: unspecified Qualified Code(s): R41.82 - Altered mental status, unspecified Category: Medical Code(s): R41.82 - Altered mental status, unspecified (6) Dementia Current visit: No Status: Acute Qualifiers: Dementia type: unspecified type Dementia behavioral disturbance: with behavioral disturbance Qualified Code(s): F03.91 - Unspecified dementia with behavioral disturbance Category: Medical Code(s): F03.90 - Unspecified dementia without behavioral disturbance (7) History of CVA (cerebrovascular accident) Current visit: No Status: Acute Category: Medical Code(s): Z86.73 - Personal history of transient ischemic attack (TIA), and cerebral infarction without residual deficits (8) Hospice care patient Current visit: Yes Status: Acute Category: Medical Code(s): Z51.5 - Encounter for palliative care - Assessment and plan all Dx Assessment and Plan for all problems:: Rounded with Dr. Oconnell all orders per Kourtney Per family request patient is comfort care only is hospice patient
--- NOTE | 2020-03-25 15:36 | PC.NURSE ---
Addendum entered by Kalli Sandy RN 03/25/20 18:55: 75mls of urine out this shift Original Note: From the top of her thighs to the bottom of her back and vaginal area is very excoriated/peeling and yeasty. MELINDA Godinez and I cleaned her this morning and oral care provided. She has been turned frequently this shift. She has been kept comfortable with morphine/ativan per mar. She is very edematous, both arms and feet are elevated with pillows. Respirations have been slow and unlabored. Julian is to bedside draining dark urine. Family is at bedside and have been reminded on several occasions about mask policy. They verbalized understanding. Will continue to monitor.
--- NOTE | 2020-03-25 19:11 | PC.NURSE ---
report given to kobe
[2020-03-25 20:00] VITALS: BP 86/54; PULSE 56; RESP 12; TEMP 34.3; O2SAT 92
[2020-03-26 05:00] VITALS: BMI 18.4
[2020-03-26 08:00] VITALS: O2SAT 88
--- NOTE | 2020-03-26 08:01 | PC.NURSE ---
No changes this shift. Comfort care measures continued. Pt turned at family request. Julian to bedside drain w/ dark yellow, cloudy urine (150ml output). Family at bedside.
[2020-03-26 08:15] VITALS: BP 93/51; PULSE 71; RESP 16; TEMP 33.7; O2SAT 94
--- NOTE | 2020-03-26 08:44 | HMH.ACPN2 ---
Internal Medicine - PN: Subj *Date: 03/26/20 *Time: 08:48 Interval history: 84-year-old female remains unresponsive, family at bedside. Family denies needs at this time Exam Vital signs and Labs for Last 24 Hours: Temp Pulse Resp BP Pulse Ox 92.7 F L 71 16 93/51 L 94 L 03/26/20 08:15 03/26/20 08:15 03/26/20 08:15 03/26/20 08:15 03/26/20 08:15 I & O for Last 24 hours: Intake & Output 03/23/20 03/24/20 03/25/20 03/26/20 23:59 23:59 23:59 23:59 Intake Total 0 / 0 0 / 0 0 / 0 0 / 0 Output Total 50 / 50 425 / 425 150 / 150 Balance -50 / -50 0 / 0 -425 / -425 -150 / -150 Weight 111 lb 9 oz 115 lb 6 oz 116 lb 3 oz 108 lb 3 oz - Constitutional chronically ill appearing - *Routine HEENT Exam Head: Present: normocephalic ENT: Present: mucous membranes dry - *Routine Neck Exam Present: trachea midline. Absent: JVD, tracheal deviation - *Routine Respiratory Exam Present: CTA bilaterally. Absent: accessory muscle use - *Routine Cardiovascular Exam Present: RRR - *Routine Abdominal Exam Present: soft, normoactive bowel sounds - *Routine Extremities Exam Present: edema - *Routine Skin Exam Present: intact - *Routine Neurological Exam Present: altered mental status - Routine Psychiatric Exam Present: unable to assess Assessment and Plan (1) C. difficile diarrhea Current visit: Yes Status: Acute Category: Medical Code(s): A04.72 - Enterocolitis due to Clostridium difficile, not specified as recurrent (2) Bradycardia Current visit: Yes Status: Acute Category: Medical Code(s): R00.1 - Bradycardia, unspecified (3) Hypotension Current visit: Yes Status: Acute Qualifiers: Hypotension type: unspecified hypotension type Qualified Code(s): I95.9 - Hypotension, unspecified Category: Medical Code(s): I95.9 - Hypotension, unspecified (4) Hypothermia Current visit: Yes Status: Acute Qualifiers: Encounter type: initial encounter Qualified Code(s): T68.XXXA - Hypothermia, initial encounter Category: Medical Code(s): T68.XXXA - Hypothermia, initial encounter (5) Altered mental state Current visit: No Status: Acute Qualifiers: Altered mental status type: unspecified Qualified Code(s): R41.82 - Altered mental status, unspecified Category: Medical Code(s): R41.82 - Altered mental status, unspecified (6) Dementia Current visit: No Status: Acute Qualifiers: Dementia type: unspecified type Dementia behavioral disturbance: with behavioral disturbance Qualified Code(s): F03.91 - Unspecified dementia with behavioral disturbance Category: Medical Code(s): F03.90 - Unspecified dementia without behavioral disturbance (7) History of CVA (cerebrovascular accident) Current visit: No Status: Acute Category: Medical Code(s): Z86.73 - Personal history of transient ischemic attack (TIA), and cerebral infarction without residual deficits (8) Hospice care patient Current visit: Yes Status: Acute Category: Medical Code(s): Z51.5 - Encounter for palliative care - Assessment and plan all Dx Assessment and Plan for all problems:: Rounded with Dr. Oconnell, all orders per Dr. Oconnell 1. Remains in DNR status
--- NOTE | 2020-03-26 10:54 | SW/DCPLANNER ---
This patient remains inpatient under Hospice Care. I have spoke with Kzeia Cuevas with Hospice whom stated that no further updates are needed at this time.
--- NOTE | 2020-03-26 19:18 | PC.NURSE ---
report given to kobe
--- NOTE | 2020-03-27 02:19 | PC.NURSE ---
PT IS UNRESPONSIVE TO VERBAL STIMULATION, PT MOANS TO PAINFUL STIMULI. LUNGS NOTED CLEAR T/O AUSCULTATION. RA TOLERATED WELL. PULSES +2, CAP REFILL <3SEC. ABDOMEN NOTED FLAT, HYPOACTIVE BOWEL SOUNDS, SOFT AND NONTENDER PER PALPATION. NO BM NOTED THIS SHIFT. CONTACT ENTERIC PRECAUTIONS REMAINED IN PLACE T/O SHIFT FOR CDIFF. BENJAMIN CATHETER IN PLACE, PATENT AND DRAINING YELLOW, CLOUDY URINE. EDEMA NOTED TO LEFT HAND AND RUE, ELEVATED ON PILLOWS INTERMITTENTLY T/O SHIFT. REDNESS ALSO NOTED TO RUE. EXCORIATION NOTED TO BUTTOCKS, TURNED AND REPOSITIONED Q2H. ORAL CARE PROVIDED INTERMITTENTLY T/O SHIFT. FAMILY REFUSES SOME CARE AT TIMES IN R/T KEEP PT COMFORTABLE. COMFORT MEASURES IN PLACE. HAVE NOT ADMINISTERED ANY PRN MEDICATION R/T FAMILY STATING LONG SHE IS ASLEEP AND RESTING OKAY, SHE DOES NOT NEED THE MEDICATIONS. I WILL LET YOU KNOW IF AND WHEN SHE NEEDS THE MEDICATIONS. WILL CONTINUE TO MONITOR.
[2020-03-27 05:00] VITALS: BMI 19.0
[2020-03-27 08:00] VITALS: BP 123/62; PULSE 68; RESP 14; TEMP 34.4; O2SAT 95
[2020-03-27 08:25] VITALS: PULSE 68; RESP 14; O2SAT 94
--- NOTE | 2020-03-27 09:06 | HMH.ACPN2 ---
Internal Medicine - PN: Subj *Date: 03/27/20 *Time: 09:34 Interval history: Patient laying in bed unresponsive to verbal stimuli. Family at bedside Exam Vital signs and Labs for Last 24 Hours: Temp Pulse Resp BP Pulse Ox 94.0 F L 68 14 123/62 95 03/27/20 08:00 03/27/20 08:00 03/27/20 08:00 03/27/20 08:00 03/27/20 08:00 I & O for Last 24 hours: Intake & Output 03/24/20 03/25/20 03/26/20 03/27/20 11:59 11:59 11:59 11:59 Intake Total 0 / 0 0 / 0 0 / 0 0 / 0 Output Total 350 / 350 225 / 225 Balance 0 / 0 -350 / -350 -225 / -225 0 / 0 Weight 115 lb 6 oz 116 lb 3 oz 108 lb 3 oz 111 lb 4 oz - Constitutional no acute distress, chronically ill appearing - *Routine HEENT Exam Head: Present: normocephalic Eye: Present: PERRL ENT: Present: mucous membranes moist - *Routine Neck Exam Present: supple. Absent: lymphadenopathy - *Routine Respiratory Exam Present: CTA bilaterally - *Routine Cardiovascular Exam Present: bradycardia - *Routine Abdominal Exam Present: soft, normoactive bowel sounds. Absent: tenderness - *Routine Extremities Exam Present: normal capillary refill. Absent: cyanosis, clubbing, edema - *Routine Skin Exam Present: warm. Absent: rash - *Routine Neurological Exam Unresponsive - Routine Psychiatric Exam Present: unable to assess Assessment and Plan (1) C. difficile diarrhea Current visit: Yes Status: Acute Category: Medical Code(s): A04.72 - Enterocolitis due to Clostridium difficile, not specified as recurrent (2) Bradycardia Current visit: Yes Status: Acute Category: Medical Code(s): R00.1 - Bradycardia, unspecified (3) Hypotension Current visit: Yes Status: Acute Qualifiers: Hypotension type: unspecified hypotension type Qualified Code(s): I95.9 - Hypotension, unspecified Category: Medical Code(s): I95.9 - Hypotension, unspecified (4) Hypothermia Current visit: Yes Status: Acute Qualifiers: Encounter type: initial encounter Qualified Code(s): T68.XXXA - Hypothermia, initial encounter Category: Medical Code(s): T68.XXXA - Hypothermia, initial encounter (5) Altered mental state Current visit: No Status: Acute Qualifiers: Altered mental status type: unspecified Qualified Code(s): R41.82 - Altered mental status, unspecified Category: Medical Code(s): R41.82 - Altered mental status, unspecified (6) Dementia Current visit: No Status: Acute Qualifiers: Dementia type: unspecified type Dementia behavioral disturbance: with behavioral disturbance Qualified Code(s): F03.91 - Unspecified dementia with behavioral disturbance Category: Medical Code(s): F03.90 - Unspecified dementia without behavioral disturbance (7) History of CVA (cerebrovascular accident) Current visit: No Status: Acute Category: Medical Code(s): Z86.73 - Personal history of transient ischemic attack (TIA), and cerebral infarction without residual deficits (8) Hospice care patient Current visit: Yes Status: Acute Category: Medical Code(s): Z51.5 - Encounter for palliative care - Assessment and plan all Dx Assessment and Plan for all problems:: Rounded with Dr. Oconnell all orders per Kourtney Patient has been with hospice for comfort care only
--- NOTE | 2020-03-27 10:58 | SW/DCPLANNER ---
Kezia Cuevas with Hospice has been here to evaluate this patient.
--- NOTE | 2020-03-27 16:28 | PC.NURSE ---
Pt has rested peacefully this shift. She has been medicated with Morphine X6, Robinul X2, and Ativan X2 per MAR thus far this shift. Oral care Q2H. Turning/repositioning Q2H. Vitals have been taken once this shift. Lung sounds are diminshed with expiratory rhonchi. 2+ pitting edema noted to bilateral hands. Bilateral buttocks are noted to be red and excoriated (Covered with polymem and tegaderm). Pt withdraws to pain. No eye opening or speech this shift. Family at bedside. Call light within reach. Will continue to monitor.
--- NOTE | 2020-03-27 19:14 | PC.NURSE ---
report given to margarita
[2020-03-27 20:00] VITALS: BP 83/52; PULSE 70; RESP 14; O2SAT 93
--- NOTE | 2020-03-28 05:11 | PC.NURSE ---
No acute changes noted this shift. Pt has rested comfortably w/ family bedside. Repositioning and oral care offered Q2H, family refusing at times to allow pt to rest . Family still requesting vitals Qshift. Pt does have rash developing on right side of chest. Pt bathed and powder applied to prevent moisture. BUE and BLE elevated on pillows. Julian to bedside drain w/ cloudy, yellow urine present. Meds given per JAN.
[2020-03-28 05:35] VITALS: BMI 18.8
[2020-03-28 08:00] VITALS: BP 82/46; PULSE 73; RESP 12; TEMP 34.2; O2SAT 91
--- NOTE | 2020-03-28 09:06 | HMH.ACPN2 ---
Internal Medicine - PN: Subj *Date: 03/28/20 *Time: 09:06 Interval history: Patient laying in bed family at bedside Exam Vital signs and Labs for Last 24 Hours: Temp Pulse Resp BP Pulse Ox 93.5 F L 73 12 82/46 L 91 L 03/28/20 08:00 03/28/20 08:00 03/28/20 08:00 03/28/20 08:00 03/28/20 08:00 I & O for Last 24 hours: Intake & Output 03/25/20 03/26/20 03/27/20 03/28/20 11:59 11:59 11:59 11:59 Intake Total 0 / 0 0 / 0 0 / 0 0 / 0 Output Total 350 / 350 225 / 225 350 / 350 Balance -350 / -350 -225 / -225 0 / 0 -350 / -350 Weight 116 lb 3 oz 108 lb 3 oz 111 lb 4 oz 110 lb 5 oz - Constitutional no acute distress, chronically ill appearing Comments: Unresponsive - *Routine HEENT Exam Head: Present: normocephalic Eye: Present: PERRL ENT: Present: mucous membranes moist - *Routine Neck Exam Present: supple. Absent: lymphadenopathy - *Routine Respiratory Exam Present: CTA bilaterally - *Routine Cardiovascular Exam Present: bradycardia - *Routine Abdominal Exam Present: soft, normoactive bowel sounds. Absent: tenderness - *Routine Extremities Exam Present: normal capillary refill. Absent: cyanosis, clubbing, edema - *Routine Skin Exam Present: warm. Absent: rash - *Routine Neurological Exam Unresponsive and obtunded - Routine Psychiatric Exam Present: unable to assess Assessment and Plan (1) C. difficile diarrhea Current visit: Yes Status: Acute Category: Medical Code(s): A04.72 - Enterocolitis due to Clostridium difficile, not specified as recurrent (2) Bradycardia Current visit: Yes Status: Acute Category: Medical Code(s): R00.1 - Bradycardia, unspecified (3) Hypotension Current visit: Yes Status: Acute Qualifiers: Hypotension type: unspecified hypotension type Qualified Code(s): I95.9 - Hypotension, unspecified Category: Medical Code(s): I95.9 - Hypotension, unspecified (4) Hypothermia Current visit: Yes Status: Acute Qualifiers: Encounter type: initial encounter Qualified Code(s): T68.XXXA - Hypothermia, initial encounter Category: Medical Code(s): T68.XXXA - Hypothermia, initial encounter (5) Altered mental state Current visit: No Status: Acute Qualifiers: Altered mental status type: unspecified Qualified Code(s): R41.82 - Altered mental status, unspecified Category: Medical Code(s): R41.82 - Altered mental status, unspecified (6) Dementia Current visit: No Status: Acute Qualifiers: Dementia type: unspecified type Dementia behavioral disturbance: with behavioral disturbance Qualified Code(s): F03.91 - Unspecified dementia with behavioral disturbance Category: Medical Code(s): F03.90 - Unspecified dementia without behavioral disturbance (7) History of CVA (cerebrovascular accident) Current visit: No Status: Acute Category: Medical Code(s): Z86.73 - Personal history of transient ischemic attack (TIA), and cerebral infarction without residual deficits (8) Hospice care patient Current visit: Yes Status: Acute Category: Medical Code(s): Z51.5 - Encounter for palliative care - Assessment and plan all Dx Assessment and Plan for all problems:: Rounded with Dr. Oconnell all orders per Kourtney Continue hospice care for comfort care only
--- NOTE | 2020-03-28 14:22 | SW/DCPLANNER ---
Kezia Cuevas with Hospice has been here to evaluate this patient. Kezia has stated that the plan is for patient to continue inpatient Hospice at this time. Patient will be re-evaluated by Hospice tomorrow morning. Deyanira did call to check on this patient and stated that patients family did give bedhold up (when admitted as inpatient Hospice) and patient no longer has a bed at [facility].
--- NOTE | 2020-03-28 15:19 | PC.NURSE ---
No acute changes noted this shift, patient remains comfort measures only, family at bedside, treated with comfort meds per emar, will continue to monitor and give supportive care to patient and family
[2020-03-28 20:00] VITALS: BP 86/52; PULSE 70; RESP 20; O2SAT 91
--- NOTE | 2020-03-28 20:27 | PC.NURSE ---
Her family is at bedside. Oral care and turn and reposition per family request. Unable to get axillary temp. Family refuses rectal temperature. Pt is comfort care. She is non-verbal and only responds to deep pain. She is voiding per f/c. Urine is yellow, cloudy. She is scheduled to receive a bath tonight per family request. Vesicular rash on right side. Reddened areas at groin and natalya-area with powder applied. She continues on contact enteric precautions. She is on RA. Bilateral hands with 2+ non-pitting edema. Bilateral hands elevated. Heels floated. No signs of pain or distress. No moaning or facial grimacing.
--- NOTE | 2020-03-29 02:42 | PC.NURSE ---
She received a PRN dose of pain medication for moaning.
[2020-03-29 04:45] VITALS: BMI 17.7
[2020-03-29 08:00] VITALS: BP 134/54; PULSE 70; PULSE 71; RESP 15; O2SAT 90; O2SAT 91
--- NOTE | 2020-03-29 08:49 | HMH.ACPN2 ---
Internal Medicine - PN: Subj *Date: 03/29/20 *Time: 12:43 Interval history: 84-year-old female patient lying in bed unresponsive, obtunded. Family at bedside Exam Vital signs and Labs for Last 24 Hours: Temp Pulse Resp BP Pulse Ox 93.5 F L 70 20 86/52 L 91 L 03/28/20 08:00 03/28/20 20:00 03/28/20 20:00 03/28/20 20:00 03/28/20 20:00 I & O for Last 24 hours: Intake & Output 03/26/20 03/27/20 03/28/20 03/29/20 23:59 23:59 23:59 23:59 Intake Total 0 / 0 0 / 0 10 / 10 Output Total 150 / 150 200 / 200 150 / 150 Balance -150 / -150 -200 / -200 -140 / -140 Weight 108 lb 3 oz 111 lb 4 oz 110 lb 5 oz 104 lb 2 oz - Constitutional obtunded - *Routine Neck Exam Present: trachea midline. Absent: JVD - *Routine Respiratory Exam Present: rhonchi. Absent: accessory muscle use - *Routine Cardiovascular Exam Present: RRR - *Routine Abdominal Exam Present: soft. Absent: firm - *Routine Skin Exam Present: warm, rash - *Routine Neurological Exam Present: altered mental status - Routine Psychiatric Exam Present: unable to assess Assessment and Plan (1) C. difficile diarrhea Current visit: Yes Status: Acute Category: Medical Code(s): A04.72 - Enterocolitis due to Clostridium difficile, not specified as recurrent (2) Bradycardia Current visit: Yes Status: Acute Category: Medical Code(s): R00.1 - Bradycardia, unspecified (3) Hypotension Current visit: Yes Status: Acute Qualifiers: Hypotension type: unspecified hypotension type Qualified Code(s): I95.9 - Hypotension, unspecified Category: Medical Code(s): I95.9 - Hypotension, unspecified (4) Hypothermia Current visit: Yes Status: Acute Qualifiers: Encounter type: initial encounter Qualified Code(s): T68.XXXA - Hypothermia, initial encounter Category: Medical Code(s): T68.XXXA - Hypothermia, initial encounter (5) Altered mental state Current visit: No Status: Acute Qualifiers: Altered mental status type: unspecified Qualified Code(s): R41.82 - Altered mental status, unspecified Category: Medical Code(s): R41.82 - Altered mental status, unspecified (6) Dementia Current visit: No Status: Acute Qualifiers: Dementia type: unspecified type Dementia behavioral disturbance: with behavioral disturbance Qualified Code(s): F03.91 - Unspecified dementia with behavioral disturbance Category: Medical Code(s): F03.90 - Unspecified dementia without behavioral disturbance (7) History of CVA (cerebrovascular accident) Current visit: No Status: Acute Category: Medical Code(s): Z86.73 - Personal history of transient ischemic attack (TIA), and cerebral infarction without residual deficits (8) Hospice care patient Current visit: Yes Status: Acute Category: Medical Code(s): Z51.5 - Encounter for palliative care - Assessment and plan all Dx Assessment and Plan for all problems:: Discussed patient with Dr. Oconnell, he will round later 1. We will continue hospice care
[2020-03-29 09:47] LABS: POC Glucose,Bedside 191 (70-110)
--- NOTE | 2020-03-29 11:09 | SW/DCPLANNER ---
Kezia Cuevas with Hospice has stated that patient will continue under inpatient Hospice Care. Hospice will continue to follow this patient.
--- NOTE | 2020-03-29 18:31 | PC.NURSE ---
No acute changes noted this shift, pt remains comfort measures only, family remains at bedside, on RA, breathing is shallow at times, lung sounds reveal scattered rhonchi t/o, hypoactive bowel sounds in all quads, pt has had 200ml urine out this shift, no bowel movement, has been treated with comfort meds per emar, will continue to give supportive care to patient and family.
--- NOTE | 2020-03-29 19:45 | PC.NURSE ---
Amy CARABALLO will be providing care under my supervision.
[2020-03-29 20:00] VITALS: BP 75/49; PULSE 78; RESP 10; O2SAT 94
--- NOTE | 2020-03-30 04:50 | PC.NURSE ---
No acute changes noted. Pt remains unresponsive except to painful stimuli. She remains on RA. Expiratory wheezing noted to lungs. Medication administered per jan. Pt turned as allowed per family. Pt continues to have excoriation to natalya area, skin folds and buttocks. Family remains at bedside. Will continue to monitor.
[2020-03-30 05:00] VITALS: BMI 17.7
[2020-03-30 08:00] VITALS: O2SAT 85
[2020-03-30 08:21] VITALS: BP 86/53; PULSE 89; RESP 19; O2SAT 85
--- NOTE | 2020-03-30 10:46 | P.PN_ITS ---
Internal Medicine - PN: Subj *Date: 03/30/20 *Time: 10:46 Interval history: Family at bedside, patient unresponsive having rapid breathing with gurgling. Exam Vital signs and Labs for Last 24 Hours: Temp Pulse Resp BP Pulse Ox 93.5 F L 89 19 86/53 L 85 L 03/28/20 08:00 03/30/20 08:21 03/30/20 08:21 03/30/20 08:21 03/30/20 08:21 I & O for Last 24 hours: Intake & Output 03/27/20 03/28/20 03/29/20 03/30/20 11:59 11:59 11:59 11:59 Intake Total 0 / 0 0 / 0 0 / 0 Output Total 350 / 350 300 / 300 Balance 0 / 0 -350 / -350 -300 / -300 Weight 111 lb 4 oz 110 lb 5 oz 104 lb 2 oz 104 lb 1.989 oz - Constitutional chronically ill appearing - *Routine HEENT Exam Head: Present: normocephalic ENT: Present: mucous membranes moist - *Routine Neck Exam Present: supple. Absent: lymphadenopathy - *Routine Respiratory Exam Present: decreased breath sounds, rhonchi - *Routine Cardiovascular Exam Present: RRR - *Routine Abdominal Exam Present: soft, normoactive bowel sounds. Absent: tenderness - *Routine Extremities Exam Absent: cyanosis, clubbing, edema - *Routine Skin Exam Present: warm. Absent: rash - *Routine Neurological Exam Unresponsive - Routine Psychiatric Exam Present: unable to assess Assessment and Plan (1) C. difficile diarrhea Current visit: Yes Status: Acute Category: Medical Code(s): A04.72 - Enterocolitis due to Clostridium difficile, not specified as recurrent (2) Bradycardia Current visit: Yes Status: Acute Category: Medical Code(s): R00.1 - Bradycardia, unspecified (3) Hypotension Current visit: Yes Status: Acute Qualifiers: Hypotension type: unspecified hypotension type Qualified Code(s): I95.9 - Hypotension, unspecified Category: Medical Code(s): I95.9 - Hypotension, unspecified (4) Hypothermia Current visit: Yes Status: Acute Qualifiers: Encounter type: initial encounter Qualified Code(s): T68.XXXA - Hypothermia, initial encounter Category: Medical Code(s): T68.XXXA - Hypothermia, initial encounter (5) Altered mental state Current visit: No Status: Acute Qualifiers: Altered mental status type: unspecified Qualified Code(s): R41.82 - Altered mental status, unspecified Category: Medical Code(s): R41.82 - Altered mental status, unspecified (6) Dementia Current visit: No Status: Acute Qualifiers: Dementia type: unspecified type Dementia behavioral disturbance: with beha vioral disturbance Qualified Code(s): F03.91 - Unspecified dementia with behavioral disturbance Category: Medical Code(s): F03.90 - Unspecified dementia without behavioral disturbance (7) History of CVA (cerebrovascular accident) Current visit: No Status: Acute Category: Medical Code(s): Z86.73 - Personal history of transient ischemic attack (TIA), and cerebral infarction without residual deficits (8) Hospice care patient Current visit: Yes Status: Acute Category: Medical Code(s): Z51.5 - Encounter for palliative care - Assessment and plan all Dx Assessment and Plan for all problems:: Discussed patient with Dr. Oconnell, all orders per Dr. Oconnell, Dr. Oconnell will round later today Continue hospice care and recommendations
--- NOTE | 2020-03-30 23:09 | PC.NURSE ---
Pt noted at 2210 to not be breathing per staff. This nurse assessed pt and no pulse was obtained. MD outside contractor sales notified at 2216. MD outside contractor sales asked for ER MD to pronounce pt. ER notified. Hospice was paged at [phone]. ER MD pronounced pt at 2230. EJ notified at [phone]. SPoke with Sharmin Elizondo. Case # [id number]. @ 2251, Emilie Barreto RN from hospice was notified of pt . Pt is currently receiving post mortem care. Family states they want pt to go to [facility].
--- NOTE | 2020-03-30 23:47 | PC.NURSE ---
[facility] at bedside.
--- NOTE | 2020-03-31 00:16 | PC.NURSE ---
[facility] left with Pt at 0014.
--- NOTE | 2020-03-31 20:17 | P.DN_ITS ---
Discharge Sum: Prov - Provider Primary care physician: Dell Oconnell MD Visit Care Team Role Provider Type Yuri James MD Emergency Provider ER Physician Dell Oconnell MD Attending Provider Staff Physician Primary Care Provider Santy Marie MD Admit Provider Staff Physician Admitting clinician: Dell Oconnell Attending physician on admission: Dell Oconnell Pronouncing clinician: Janes Quezada Discharge Sum: Summary - Date and Time Date of admission: 03/17/20 08:02 Date of : 03/30/20 Time of : 22:30 - Additional Data Confirmation of as documented by pronouncing clinician: no pulse, no respirations, no heart sounds Family: at bedside Attending/PCP notified?: Yes Attending physician: Dell Oconnell MD Was code activated?: No Autopsy requested?: No property insurance claims examiner notified?: Yes Organ bank notified?: Yes Advance directives: Yes Hospice patient?: Yes
--- NOTE | 2020-06-17 14:17 | HMH.DCSUM ---
General - General Admission date:: 03/17/20 Discharge date: 03/30/20 () HPI HPI: 84 yr old female arrived in ed via ambulance from [facility] where she was found to be hypothermic and bradycardic. She is not able to provide any history, she is nonverbal- not her normal state- some hx reported from family. Currently being treated for C. difficile with oral vancomycin. Patient admitted for hypotension, bradicardia, and hypothermia. Hospital Course Hospital Course: pt 03/30/20 at 2210 Laboratory Tests 03/17/20 03/17/20 03/17/20 04:35 04:35 04:35 WBC 5.5 RBC 3.01 L Hgb 9.4 L Hct 29.8 L MCV 98.9 MCH 31.4 H MCHC 31.7 L RDW 14.6 Plt Count 109 L MPV 9.7 Neut % (Auto) 89.1 H Lymph % (Auto) 7.4 L [place] % (Auto) 2.9 Eos % (Auto) 0.4 Baso % (Auto) 0.3 Neut # (Auto) 4.9 Lymph # (Auto) 0.4 L [place] # (Auto) 0.2 Eos # (Auto) 0.0 Baso # (Auto) 0.0 Total Counted 100 Neutrophils % (Manual) 82 H Band Neutrophils % 10.0 H Lymphocytes % (Manual) 7 L Monocytes % (Manual) 1 L Platelet Estimate Slight decrease Hypochromasia 1+ Macrocytosis 1+ PT INR APTT Sodium 130 L Potassium 3.8 Chloride 105 Carbon Dioxide 18 L Anion Gap 10.8 BUN 31 H Creatinine 1.50 H Estimated Creat Clear 34 Estimated GFR 33 L Est GFR ( Amer) 40 L Glucose 179 H POC Glucose Lactate Calcium 8.0 L Total Bilirubin 0.1 L AST 20 ALT 17 Alkaline Phosphatase 169 H Total Creatine Kinase < 20 L Troponin I < 0.01 Total Protein 5.1 L Albumin 2.6 L Globulin 2.5 Albumin/Globulin Ratio 1.0 L TSH 5.69 H Free T4 Urine Color Yellow Urine Appearance Clear Urine pH 5.5 Ur Specific [place] 1.025 Urine Protein Trace Urine Glucose (UA) Negative Urine Ketones Trace Urine Blood Negative Urine Nitrate Negative Urine Bilirubin Negative Urine Urobilinogen 0.2 Ur Leukocyte Esterase Trace Urine WBC 5-10 Ur Squamous Epith Cells 5-10 Amorphous Sediment 2+ Hyaline Casts 3-5 Coarse Granular Casts 5-10 Urine Opiates Screen Urine Methadone Screen Ur Barbituates Screen Ur Phencyclidine Scrn Ur Amphetamines Screen U Benzodiazepines Scrn Urine Cocaine Screen U Marijuana (THC) Screen 03/17/20 03/17/20 03/17/20 04:35 04:35 04:37 WBC RBC Hgb Hct MCV MCH MCHC RDW Plt Count MPV Neut % (Auto) Lymph % (Auto) [place] % (Auto) Eos % (Auto) Baso % (Auto) Neut # (Auto) Lymph # (Auto) [place] # (Auto) Eos # (Auto) Baso # (Auto) Total Counted Neutrophils % (Manual) Band Neutrophils % Lymphocytes % (Manual) Monocytes % (Manual) Platelet Estimate Hypochromasia Macrocytosis PT INR APTT Sodium Potassium Chloride Carbon Dioxide Anion Gap BUN Creatinine Estimated Creat Clear Estimated GFR Est GFR ( Amer) Glucose POC Glucose 191 H Lactate Calcium Total Bilirubin AST ALT Alkaline Phosphatase Total Creatine Kinase Troponin I Total Protein Albumin Globulin Albumin/Globulin Ratio TSH Free T4 1.31 Urine Color Urine Appearance Urine pH Ur Specific [place] Urine Protein Urine Glucose (UA) Urine Ketones Urine Blood Urine Nitrate Urine Bilirubin Urine Urobilinogen Ur Leukocyte Esterase Urine WBC Ur Squamous Epith Cells Amorphous Sediment Hyaline Casts Coarse Granular Casts Urine Opiates Screen Negative Urine Methadone Screen Negative Ur Barbituates Screen Negative Ur Phencyclidine Scrn Negative Ur Amphetamines Screen Negative U Benzodiazepines Scrn Negative Urine Cocaine Screen Negative U Marijuana (THC) Screen Negative
== END 2020-03-31 00:14 | disposition expired | DRG 315 ==
LOC: ER 06:16 → 2ND 18:57
PROVIDERS: Admitting Provider Family Medicine; Emergency Provider Emergency Medicine; PCP Emergency Medicine; Visit Provider Emergency Medicine
DX: I95.9 Hypotension, unspecified (principal); A04.72 Enterocolitis due to Clostridium difficile, not specified as recurrent; I10 Essential (primary) hypertension; Z86.73 Personal history of transient ischemic attack (TIA), and cerebral infarction without residual deficits; F03.90 Unspecified dementia, unspecified severity, without behavioral disturbance, psychotic disturbance, mood disturbance, and anxiety; Z79.899 Other long term (current) drug therapy; E03.9 Hypothyroidism, unspecified; Z88.8 Allergy status to other drugs, medicaments and biological substances; Z88.0 Allergy status to penicillin
CPT/HCPCS: 71045; 80053; 80305; 81001; 82550; 82962; 83605; 84439; 84443; 84484; 85007; 85025; 85610; 85730; 87040; 87506; 93005; 96365; 96367; 99285; J1956